=== PATIENT | male | born 1955 | race African-American/Black ===

== ENCOUNTER 2016-03-08 12:16 | Emergency (ER) | payer OTHER ==
[~2016-03-08] VITALS: Ht 182.9 cm; Wt 76.8 kg
[~2016-03-08 12:16] MED LIST: A&D OINTMENT60 GM PO; BACTRIM,SEPT1 TABLET PO; BENADRYL25 MG PO; BENZONATATE200 MG PO; BISACODYL SUPP10 MG PR; CIPRO500 MG GT; CLOTRIMAZOLE15 GM TP; DEMECLOCYCLINE300 MG PO; DEPAKOTE ER (E500 MG PO; DEPAKOTE ER500 MG PO; DEPAKOTE500 MG PO; DESENEX TP; DILANTIN BRAND100 MG PO; DILANTIN INFATA50 MG PO; DILANTIN-1125 MG/5 M GT; DILANTIN100 MG PO; DIVALPROEX SOD500 MG PO; DULCOLAX10 MG PR; Depakote ER (Extende PO; FEROSUL220 MG/51 GT; FIBER LAX625 MG PO; FIBER LAXATIVE500 MG PO; FIBER LAXATIVE660 GM PO; FIBER-TABS625 MG PO; FLEET ENEMA EX230 ML PR; FLEET ENEMA-AD118 ML PR; FOLIC ACID0.4 MG PO; FOLIC ACID1 MG PO; IBUPROFEN600 MG PO; JEVITY 1.2 CAL237 ML GT; JEVITY1000 M1 G; KEPPRA100 MG/1 M GT; KEPPRA500 MG/5 M GT; LEVOTHYROXINE125 MCG PO; LOMOTIL TABLET1 EACH PO; LOTRIMIN C1 APPLICAT TP; MACRODANTIN100 MG PO; MACRODANTIN50 M1 PO; MIRALAX17 GM GT; NITROFURANTOIN100 MG PO; PAIN & FEVER500 MG PO; PHENERGAN12.5 M1 PO; PHENERGAN25 MG PR; POTASSIUM CHLO20 ME2 PO; POTASSIUM CITR10 MEQ GT; POTASSIUM CITR10 MEQ PO; PROTONIX40 MG GT; PROTONIX40 MG PO; Protonix PO; Q-TUSSIN DM SY240 ML PO; SAMSCA30 MG PO; SENNA PLUS TAB1 EACH PO; SENNA S TABLET1 EACH PO; SENOKOT,SENN1 TABLET PO; SOOTHING CARE28 GM TP; SYNTHROID125 MCG PO; Senokot,Sennagen PO; TUCKS1 EACH RC; TYLENOL EXTRA500 MG PO; UROCIT-K10 MEQ PO; VITAMIN A & D60 GM TP; VITAMIN A TP; [UNRECOGNIZED DRUG - OTHER] DT; [UNRECOGNIZED DRUG - OTHER] TP; [UNRECOGNIZED DRUG - OTHER] TP
[2016-03-08 17:50] VITALS: BP 127/70
== END 2016-03-08 17:51 | disposition home or self-care (01) ==
LOC: EME 12:16
DX: Z43.1 Encounter for attention to gastrostomy (principal); G80.9 Cerebral palsy, unspecified; E03.9 Hypothyroidism, unspecified; R56.9 Unspecified convulsions; Z87.442 Personal history of urinary calculi
CPT/HCPCS: 74000; 99281; 99284

== ENCOUNTER 2016-04-11 13:20 | Emergency (ER) | payer OTHER ==
[~2016-04-11] VITALS: Ht 182.9 cm; Wt 79.3 kg
[2016-04-11 15:54] VITALS: BP 161/92
[2016-04-11] MEDS ORDERED: [UNRECOGNIZED DRUG - OTHER] DT (21:40)
[2016-04-11] MEDS ORDERED: JEVITY 1.2 CAL237 ML GT ×2 (21:42)
[2016-04-11] MEDS ORDERED: FLEET ENEMA-AD118 ML PR (21:48)
== END 2016-04-11 15:55 | disposition home or self-care (01) ==
LOC: EME 13:20
DX: K94.23 Gastrostomy malfunction (principal); J45.909 Unspecified asthma, uncomplicated; K21.9 Gastro-esophageal reflux disease without esophagitis; G80.9 Cerebral palsy, unspecified; E03.9 Hypothyroidism, unspecified; Z87.442 Personal history of urinary calculi
CPT/HCPCS: 99281; 99283

== ENCOUNTER 2016-04-11 17:58 | Inpatient (IN) | payer OTHER ==
[~2016-04-11] VITALS: Ht 185.4 cm; Wt 88.6 kg
[2016-04-11 19:26] LABS: EOSINOPHIL (%) 0.2 % (0-5); HEMATOCRIT 44.1 % (38.0-50.0); IMMATURE GRANULOCYTE (%) 0.2 % (0.0-0.7); IMMATURE GRANULOCYTE COUNT 0.2 K/uL; LYMPHOCYTE COUNT 1.2 K/uL (1.0-2.8); MCH 33.7 PG (29.0-34.0); MCHC 32.7 G/DL (30.0-36.0); MCV 103.3 FL (86-99); MONOCYTE (%) 10.1 % (3-12); MONOCYTE COUNT 1.4 K/uL (0-0.8); NEUTROPHIL (%) 80.4 % (45-76); NEUTROPHIL COUNT 10.7 K/uL (1.8-6.4); PLATELET COUNT 122 K/uL (156-360); RBC DIS.WIDTH-CV 12.4 % (11.8-14.6); RBC DIS.WIDTH-SD 46.6 % (39-53); RED BLOOD COUNT 4.27 M/uL (4.00-5.50); WHITE BLOOD COUNT 13.3 K/uL (4.1-10.2)
[2016-04-11 19:37] LABS: CHLORIDE 97 mEq/L (99-109); POTASSIUM 4.9 mEq/L (3.7-5.4); SODIUM 136 mEq/L (136-147)
[2016-04-11 19:39] LABS: GLUCOSE 116 mg/dL (70-99)
[2016-04-11 19:41] LABS: ANION GAP 13 MEQ/L (2-14); TOTAL BILIRUBIN 0.4 mg/dL (0.0-1.0)
[2016-04-11 19:43] LABS: ALKALINE PHOSPHATASE 165 IU/L (3-129); GFR ESTIMATE (CALCULATED) > 59 mL/min/
[2016-04-11 19:44] LABS: UREA NITROGEN (BUN) 10 mg/dL (9-23)
[2016-04-11 20:17] LABS: ADD MIUA? YES; BILIRUBIN NEGATIVE; BLOOD MODERATE; COLOR YELLOW ((YELLOW)); GLUCOSE (STRIP) NEGATIVE; KETONES NEGATIVE; LEUKOCYTES MODERATE; NITRITE NEGATIVE; PROTEIN (STRIP) NEGATIVE; SPECIFIC GRAVITY 1.005 (1.000-1.030); UROBILINOGEN 0.2 MG/DL (0.2-1.0)
[2016-04-11 20:25] LABS: INFLUENZA A VIRAL ANTIGEN NEGATIVE; INFLUENZA B VIRAL ANTIGEN NEGATIVE
[2016-04-11 21:04] LABS: BACTERIA 3+ /HPF; CASTS NONE SEEN /LPF; CRYSTALS NONE SEEN; EPITHELIAL CELLS NONE SEEN /HPF; MUCUS NONE SEEN /LPF; UCUL ADDED? YES; WHITE BLOOD CELLS TNTC /HPF (0-5)
[2016-04-11] MEDS ORDERED: [UNRECOGNIZED DRUG - OTHER] DT (21:40)
[2016-04-11] MEDS ORDERED: JEVITY 1.2 CAL237 ML GT ×2 (21:42)
[2016-04-11] MEDS ORDERED: FLEET ENEMA-AD118 ML PR (21:48)
[2016-04-12 06:11] LABS: POTASSIUM 5.3 mEq/L (3.7-5.4); SODIUM 140 mEq/L (136-147)
[2016-04-12 06:12] LABS: GLUCOSE 118 mg/dL (70-99)
[2016-04-12 06:14] LABS: ANION GAP 3 MEQ/L (2-14)
[2016-04-12 06:15] LABS: CHLORIDE 109 mEq/L (99-109)
[2016-04-12 06:16] LABS: GFR ESTIMATE (CALCULATED) > 59 mL/min/
[2016-04-12 06:17] LABS: RED BLOOD COUNT 3.51 M/uL (4.00-5.50); UREA NITROGEN (BUN) 8 mg/dL (9-23); WHITE BLOOD COUNT 11.5 K/uL (4.1-10.2)
[2016-04-12 06:18] LABS: EOSINOPHIL (%) 0.05 % (0-5); HEMATOCRIT 36.5 % (38.0-50.0); LYMPHOCYTE COUNT 15.4 K/uL (1.0-2.8); MCH 33.3 PG (29.0-34.0); MCHC 32.1 G/DL (30.0-36.0); MEAN PLAT.VOLUME 11.3 uM^3 (9.0-12.4); NEUTROPHIL (%) 8.62 % (45-76); PLATELET COUNT 107 K/uL (156-360); RBC DIS.WIDTH-CV 12.6 % (11.8-14.6)
[2016-04-12 06:19] LABS: BASOPHIL COUNT 0.1 K/uL (0-0.1); EOSINOPHIL COUNT 8.7 K/uL (0-0.3); IMMATURE GRANULOCYTE COUNT 0.2 K/uL; MONOCYTE COUNT 8.7 K/uL (0-0.8); NEUTROPHIL COUNT 75.2 K/uL (1.8-6.4)
[2016-04-12 10:23] LABS: RBC DIS.WIDTH-SD 46.9 % (39-53)
[2016-04-12 15:28] VITALS: BP 118/78
[2016-04-12 19:56] VITALS: BP 111/65
[2016-04-12 23:52] VITALS: BP 106/53; BP 119/77
[2016-04-13 03:58] VITALS: BP 129/78
[2016-04-13 06:26] LABS: ANION GAP 3 MEQ/L (2-14); CHLORIDE 106 MEQ/L (99-109); GFR ESTIMATE (CALCULATED) > 59 mL/min/; SAMPLE HEMOLYSIS CHECK 0; SAMPLE ICTERIC CHECK 0; SAMPLE LIPEMIA CHECK 0; SODIUM 139 MEQ/L (136-147); UREA NITROGEN (BUN) 6 mg/dL (9-23)
[2016-04-13 06:47] LABS: GLUCOSE 80 mg/dL (70-99); POTASSIUM 3.9 MEQ/L (3.7-5.4)
[2016-04-13 07:01] LABS: EOSINOPHIL (%) 1.8 % (0-5); EOSINOPHIL COUNT 0.1 K/uL (0-0.3); HEMATOCRIT 33.8 % (38.0-50.0); IMMATURE GRANULOCYTE (%) 0.1 % (0.0-0.7); LYMPHOCYTE COUNT 1.8 K/uL (1.0-2.8); MCH 34.1 PG (29.0-34.0); MCV 106.6 FL (86-99); MEAN PLAT.VOLUME 11.4 uM^3 (9.0-12.4); MONOCYTE (%) 13.3 % (3-12); NEUTROPHIL (%) 60.3 % (45-76); NEUTROPHIL COUNT 4.5 K/uL (1.8-6.4); PLATELET COUNT 109 K/uL (156-360); RBC DIS.WIDTH-SD 50.4 % (39-53); RED BLOOD COUNT 3.17 M/uL (4.00-5.50)
[2016-04-13 07:20] LABS: WHITE BLOOD COUNT 7.4 K/uL (4.1-10.2)
[2016-04-13 07:44] VITALS: BP 120/67
[2016-04-13 11:28] VITALS: BP 132/85
[2016-04-13 15:33] VITALS: BP 128/70
[2016-04-13 19:29] VITALS: BP 155/81
[2016-04-13 23:10] VITALS: BP 135/78
[2016-04-14] VITALS (7 sets, daily range): BP systolic 133–178; BP diastolic 69–90
[2016-04-14 06:46] LABS: EOSINOPHIL COUNT 0.2 K/uL (0-0.3); HEMATOCRIT 34.5 % (38.0-50.0); IMMATURE GRANULOCYTE (%) 0.2 % (0.0-0.7); LYMPHOCYTE COUNT 2.6 K/uL (1.0-2.8); MCH 33.9 PG (29.0-34.0); MCHC 32.5 G/DL (30.0-36.0); MCV 104.5 FL (86-99); MEAN PLAT.VOLUME 11.7 uM^3 (9.0-12.4); MONOCYTE (%) 9.8 % (3-12); MONOCYTE COUNT 0.6 K/uL (0-0.8); NEUTROPHIL (%) 44.1 % (45-76); NEUTROPHIL COUNT 2.6 K/uL (1.8-6.4); PLATELET COUNT 117 K/uL (156-360); RBC DIS.WIDTH-CV 12.9 % (11.8-14.6); RBC DIS.WIDTH-SD 48.9 % (39-53)
[2016-04-14 07:24] LABS: ANION GAP 5 MEQ/L (2-14); CHLORIDE 107 MEQ/L (99-109); GFR ESTIMATE (CALCULATED) > 59 mL/min/; GLUCOSE 102 mg/dL (70-99); POTASSIUM ND MEQ/L (3.7-5.4); SAMPLE HEMOLYSIS CHECK 2; SAMPLE ICTERIC CHECK 0; SAMPLE LIPEMIA CHECK 0; SODIUM 141 MEQ/L (136-147); UREA NITROGEN (BUN) 6 mg/dL (9-23)
[2016-04-14 09:25] LABS: POTASSIUM 3.9 MEQ/L (3.7-5.4)
[2016-04-15 03:05] VITALS: BP 143/77
[2016-04-15 08:00] VITALS: BP 135/74
[2016-04-15 11:56] VITALS: BP 151/82
[2016-04-15] MEDS ORDERED: CEFTIN250 MG/5 M PO (13:50)
[2016-04-15 16:18] VITALS: BP 134/72
== END 2016-04-15 17:57 | disposition home or self-care (01) | DRG 872 ==
LOC: EME 17:58 → 4SOUTH 22:19 → EDOF 22:19 → 4SOUTH 04-12 15:20
PROVIDERS: Emergency Medicine; Family Medicine Sports Medicine
DX: A41.9 Sepsis, unspecified organism (principal); N39.0 Urinary tract infection, site not specified; E22.2 Syndrome of inappropriate secretion of antidiuretic hormone; E87.2 Acidosis; B96.20 Unspecified Escherichia coli [E. coli] as the cause of diseases classified elsewhere; G80.9 Cerebral palsy, unspecified; G40.909 Epilepsy, unspecified, not intractable, without status epilepticus; E03.9 Hypothyroidism, unspecified; K21.9 Gastro-esophageal reflux disease without esophagitis; R32 Unspecified urinary incontinence; Z93.1 Gastrostomy status; Z91.041 Radiographic dye allergy status; Z88.5 Allergy status to narcotic agent
CPT/HCPCS: 71010; 76770; 80048; 80053; 80185; 81003; 83605; 84999; 85025; 87040; 87077; 87086; 87186; 87502; 93005; 94799; 99281; 99285; J0696; J1650; J2543; J3370; J7030; J7050

== ENCOUNTER 2016-07-11 16:04 | Inpatient (IN) | payer OTHER ==
[~2016-07-11] VITALS: Ht 185.4 cm; Wt 85.8 kg
[~2016-07-11 16:04] MED LIST changes: +CEFTIN250 MG/5 M PO
[2016-07-11 16:57] LABS: EOSINOPHIL (%) 1.6 % (0-5); EOSINOPHIL COUNT 0.1 K/uL (0-0.3); HEMATOCRIT 41.2 % (38.0-50.0); IMMATURE GRANULOCYTE (%) 0.5 % (0.0-0.7); INSTRUMENT ABS NEUTROPHIL CT 4.5 K/uL; LYMPHOCYTE COUNT 1.9 K/uL (1.0-2.8); MCH 33.1 PG (29.0-34.0); MCHC 32.3 G/DL (30.0-36.0); MCV 102.5 FL (86-99); MEAN PLAT.VOLUME 11.8 uM^3 (9.0-12.4); MONOCYTE (%) 15.2 % (3-12); MONOCYTE COUNT 1.2 K/uL (0-0.8); NEUTROPHIL (%) 58.1 % (45-76); NEUTROPHIL COUNT 4.5 K/uL (1.8-6.4); NRBC (%) 0.3 /100 WBC (0-0); PLATELET COUNT 130 K/uL (156-360); RBC DIS.WIDTH-CV 12.5 % (11.8-14.6); RBC DIS.WIDTH-SD 47.6 % (39-53); RED BLOOD COUNT 4.02 M/uL (4.00-5.50); WHITE BLOOD COUNT 7.7 K/uL (4.1-10.2)
[2016-07-11 17:06] LABS: CHLORIDE 101 mEq/L (99-109); POTASSIUM 4.9 mEq/L (3.7-5.4); SODIUM 137 mEq/L (136-147)
[2016-07-11 17:08] LABS: GLUCOSE 71 mg/dL (70-99)
[2016-07-11 17:09] LABS: ANION GAP 8 MEQ/L (2-14)
[2016-07-11 17:10] LABS: TOTAL BILIRUBIN 0.3 mg/dL (0.0-1.0)
[2016-07-11 17:11] LABS: ALKALINE PHOSPHATASE 173 IU/L (3-129)
[2016-07-11 17:12] LABS: GFR ESTIMATE (CALCULATED) > 59 mL/min/
[2016-07-11 17:13] LABS: UREA NITROGEN (BUN) 14 mg/dL (9-23)
[2016-07-11 17:15] LABS: CREATINE KINASE 41 IU/L (1-294); TOTAL CK 41 IU/L (1-294)
[2016-07-11 17:17] LABS: TROP-I INTERPRETATION NEGATIVE; TROPONIN-I < 0.01 ng/mL (0.0-0.30)
[2016-07-11 17:20] LABS: CK-MB 1.3 ng/mL (0.0-4.9)
[2016-07-11 17:45] LABS: ADD MIUA? YES; BILIRUBIN NEGATIVE; BLOOD MODERATE; COLOR YELLOW ((YELLOW)); GLUCOSE (STRIP) NEGATIVE; KETONES NEGATIVE; LEUKOCYTES LARGE; NITRITE POSITIVE; PROTEIN (STRIP) NEGATIVE; SPECIFIC GRAVITY 1.012 (1.000-1.030); UROBILINOGEN 0.2 MG/DL (0.2-1.0)
[2016-07-11 18:01] LABS: BACTERIA RARE /HPF; EPITHELIAL CELLS NONE SEEN /HPF; MUCUS TRACE /LPF; RED BLOOD CELLS NONE SEEN /HPF (0-5); UCUL ADDED? NO; WHITE BLOOD CELLS 40-50 /HPF (0-5); WHITE BLOOD CELLS CLUMP MANY /HPF (0-5)
[2016-07-11] MEDS ORDERED: TUCKS TP (20:50)
[2016-07-11] MEDS ORDERED: FEROSUL220 MG/51 PO (20:52)
[2016-07-11 23:50] VITALS: BP 113/65
[2016-07-12 04:06] VITALS: BP 112/70
[2016-07-12 07:03] LABS: EOSINOPHIL (%) 0.7 % (0-5); EOSINOPHIL COUNT 0.1 K/uL (0-0.3); HEMATOCRIT 38.1 % (38.0-50.0); IMMATURE GRANULOCYTE (%) 0.4 % (0.0-0.7); INSTRUMENT ABS NEUTROPHIL CT 4.9 K/uL; LYMPHOCYTE COUNT 1.9 K/uL (1.0-2.8); MCH 33.8 PG (29.0-34.0); MCHC 32.5 G/DL (30.0-36.0); MCV 103.8 FL (86-99); MEAN PLAT.VOLUME 12.3 uM^3 (9.0-12.4); MONOCYTE (%) 16.1 % (3-12); MONOCYTE COUNT 1.3 K/uL (0-0.8); NEUTROPHIL (%) 59.7 % (45-76); NEUTROPHIL COUNT 4.9 K/uL (1.8-6.4); PLATELET COUNT 98 K/uL (156-360); RBC DIS.WIDTH-CV 12.6 % (11.8-14.6); RED BLOOD COUNT 3.67 M/uL (4.00-5.50); WHITE BLOOD COUNT 8.2 K/uL (4.1-10.2)
[2016-07-12 07:49] LABS: ALKALINE PHOSPHATASE 148 IU/L (3-129); ANION GAP 7 MEQ/L (2-14); CHLORIDE 98 MEQ/L (99-109); DIRECT BILIRUBIN 0.1 mg/dL (0.0-0.3); GFR ESTIMATE (CALCULATED) > 59 mL/min/; POTASSIUM 4.4 MEQ/L (3.7-5.4); SAMPLE HEMOLYSIS CHECK 0; SAMPLE ICTERIC CHECK 0; SAMPLE LIPEMIA CHECK 0; SODIUM 136 MEQ/L (136-147); UREA NITROGEN (BUN) 14 mg/dL (9-23)
[2016-07-12 07:52] LABS: GLUCOSE 92 mg/dL (70-99); TOTAL BILIRUBIN 0.4 MG/DL (0.0-1.0)
[2016-07-12 12:00] VITALS: BP 117/65
[2016-07-12 15:37] LABS: GLUCOSE 141 mg/dL (70-99)
[2016-07-12 16:18] LABS: GLUCOSE 141 mg/dL (70-99)
[2016-07-12 17:05] VITALS: BP 120/67
[2016-07-12 19:51] VITALS: BP 109/75
[2016-07-12 22:29] LABS: GLUCOSE 90 mg/dL (70-99)
[2016-07-12 22:37] VITALS: BP 146/71
[2016-07-13 03:15] VITALS: BP 124/68
[2016-07-13 04:25] LABS: POINT-OF-CARE METER ID UU13113725
[2016-07-13 08:01] LABS: EOSINOPHIL (%) 1.5 % (0-5); EOSINOPHIL COUNT 0.1 K/uL (0-0.3); HEMATOCRIT 38.6 % (38.0-50.0); IMMATURE GRANULOCYTE (%) 0.4 % (0.0-0.7); INSTRUMENT ABS NEUTROPHIL CT 4.7 K/uL; LYMPHOCYTE COUNT 1.1 K/uL (1.0-2.8); MCH 33.7 PG (29.0-34.0); MCHC 32.9 G/DL (30.0-36.0); MCV 102.4 FL (86-99); MEAN PLAT.VOLUME 12.7 uM^3 (9.0-12.4); MONOCYTE (%) 17.2 % (3-12); MONOCYTE COUNT 1.3 K/uL (0-0.8); NEUTROPHIL (%) 65.2 % (45-76); NEUTROPHIL COUNT 4.7 K/uL (1.8-6.4); PLATELET COUNT 99 K/uL (156-360); RBC DIS.WIDTH-CV 12.6 % (11.8-14.6); RBC DIS.WIDTH-SD 47.2 % (39-53); RED BLOOD COUNT 3.77 M/uL (4.00-5.50); WHITE BLOOD COUNT 7.3 K/uL (4.1-10.2)
[2016-07-13 08:06] LABS: INTERNAL CONTROL VALID? YES
[2016-07-13 08:38] LABS: ANION GAP 7 MEQ/L (2-14); CHLORIDE 96 MEQ/L (99-109); GFR ESTIMATE (CALCULATED) > 59 mL/min/; GLUCOSE 109 mg/dL (70-99); POTASSIUM 4.3 MEQ/L (3.7-5.4); SAMPLE HEMOLYSIS CHECK 0; SAMPLE ICTERIC CHECK 0; SAMPLE LIPEMIA CHECK 0; SODIUM 133 MEQ/L (136-147); UREA NITROGEN (BUN) 11 mg/dL (9-23)
[2016-07-13 08:51] VITALS: BP 134/79
[2016-07-13 11:03] LABS: POINT-OF-CARE METER ID UU13113725
[2016-07-13 18:05] VITALS: BP 118/68
[2016-07-13 20:05] VITALS: BP 136/74
[2016-07-13 21:08] LABS: POINT-OF-CARE METER ID UU13113725
[2016-07-13 23:52] VITALS: BP 120/71
[2016-07-14 00:32] LABS: POINT-OF-CARE METER ID UU13113725
[2016-07-14 06:47] VITALS: BP 116/59
[2016-07-14 07:46] LABS: EOSINOPHIL (%) 5.1 % (0-5); EOSINOPHIL COUNT 0.3 K/uL (0-0.3); HEMATOCRIT 39.4 % (38.0-50.0); IMMATURE GRANULOCYTE (%) 0.3 % (0.0-0.7); INSTRUMENT ABS NEUTROPHIL CT 2.8 K/uL; LYMPHOCYTE COUNT 1.7 K/uL (1.0-2.8); MCH 33.1 PG (29.0-34.0); MCHC 32.2 G/DL (30.0-36.0); MCV 102.6 FL (86-99); MEAN PLAT.VOLUME 12.3 uM^3 (9.0-12.4); MONOCYTE (%) 22.4 % (3-12); MONOCYTE COUNT 1.4 K/uL (0-0.8); NEUTROPHIL (%) 44.8 % (45-76); NEUTROPHIL COUNT 2.8 K/uL (1.8-6.4); PLATELET COUNT 119 K/uL (156-360); RBC DIS.WIDTH-CV 12.6 % (11.8-14.6); RBC DIS.WIDTH-SD 47.6 % (39-53); RED BLOOD COUNT 3.84 M/uL (4.00-5.50); WHITE BLOOD COUNT 6.2 K/uL (4.1-10.2)
[2016-07-14 08:50] LABS: ANION GAP 8 MEQ/L (2-14); CHLORIDE 99 MEQ/L (99-109); GFR ESTIMATE (CALCULATED) > 59 mL/min/; POTASSIUM 4.7 MEQ/L (3.7-5.4); SAMPLE HEMOLYSIS CHECK 0; SAMPLE ICTERIC CHECK 0; SAMPLE LIPEMIA CHECK 0; SODIUM 136 MEQ/L (136-147); UREA NITROGEN (BUN) 14 mg/dL (9-23)
[2016-07-14 08:54] LABS: GLUCOSE 77 mg/dL (70-99)
[2016-07-14 10:15] LABS: POINT-OF-CARE METER ID UU13113725
[2016-07-14 11:16] VITALS: BP 131/75
[2016-07-14 11:42] VITALS: BP 131/75
[2016-07-14] MEDS ORDERED: DILANTIN-1125 MG/5 M GT (12:49)
[2016-07-14] MEDS ORDERED: VANTIN200 MG PO (12:49)
== END 2016-07-14 15:30 | disposition home or self-care (01) | DRG 193 ==
LOC: EME 16:04 → EDOF 22:20 → 5EAST 22:20 → EDOF 22:20 → 5EAST 23:14
PROVIDERS: Emergency Medicine; Hospitalist
DX: J18.9 Pneumonia, unspecified organism (principal); E72.20 Disorder of urea cycle metabolism, unspecified; N39.0 Urinary tract infection, site not specified; E22.2 Syndrome of inappropriate secretion of antidiuretic hormone; G82.50 Quadriplegia, unspecified; D69.6 Thrombocytopenia, unspecified; G80.9 Cerebral palsy, unspecified; G40.909 Epilepsy, unspecified, not intractable, without status epilepticus; E03.9 Hypothyroidism, unspecified; K59.00 Constipation, unspecified; I10 Essential (primary) hypertension; B96.20 Unspecified Escherichia coli [E. coli] as the cause of diseases classified elsewhere; M54.5 Low back pain; E66.9 Obesity, unspecified; K02.9 Dental caries, unspecified; M21.372 Foot drop, left foot; M21.371 Foot drop, right foot; Z68.24 Body mass index [BMI] 24.0-24.9, adult; Z93.1 Gastrostomy status; Z99.3 Dependence on wheelchair
CPT/HCPCS: 36415; 71010; 74176; 80048; 80048 91; 80053; 80076; 80185; 81003; 82140; 82550; 82553; 82947 91; 82948; 83935; 84443; 84484; 85025; 85027; 87040; 87070; 87077; 87086; 87186; 87205; 87449; 93005; 94640; 94640 76; 99202; 99281; 99285; G0378; J0456; J0696; J1644; J1885; J1956; J2270; J7050

== ENCOUNTER 2016-08-30 13:38 | Inpatient (IN) | payer OTHER ==
[~2016-08-30] VITALS: Ht 177.8 cm; Wt 80.0 kg
[~2016-08-30 13:38] MED LIST changes: +TUCKS TP; +VANTIN200 MG PO
[2016-08-30 14:34] LABS: EOSINOPHIL (%) 2.8 % (0-5); EOSINOPHIL COUNT 0.1 K/uL (0-0.3); HEMATOCRIT 39.2 % (38.0-50.0); IMMATURE GRANULOCYTE (%) 0.3 % (0.0-0.7); INSTRUMENT ABS NEUTROPHIL CT 1.1 K/uL; LYMPHOCYTE COUNT 1.6 K/uL (1.0-2.8); MCH 33.2 PG (29.0-34.0); MCHC 31.1 G/DL (30.0-36.0); MCV 106.5 FL (86-99); MEAN PLAT.VOLUME 12.5 uM^3 (9.0-12.4); MONOCYTE (%) 10.9 % (3-12); MONOCYTE COUNT 0.4 K/uL (0-0.8); NEUTROPHIL (%) 35.1 % (45-76); NEUTROPHIL COUNT 1.1 K/uL (1.8-6.4); NRBC (%) 1.6 /100 WBC (0-0); RBC DIS.WIDTH-CV 13.2 % (11.8-14.6); RBC DIS.WIDTH-SD 52.5 % (39-53); RED BLOOD COUNT 3.68 M/uL (4.00-5.50); WHITE BLOOD COUNT 3.2 K/uL (4.1-10.2)
[2016-08-30 14:37] LABS: PLATELET COUNT 56 K/uL (156-360)
[2016-08-30 14:42] LABS: CHLORIDE 103 mEq/L (99-109); SODIUM 137 mEq/L (136-147)
[2016-08-30 14:45] LABS: GLUCOSE 110 mg/dL (70-99)
[2016-08-30 14:46] LABS: ANION GAP 4 MEQ/L (2-14)
[2016-08-30 14:47] LABS: TOTAL BILIRUBIN 0.2 mg/dL (0.0-1.0)
[2016-08-30 14:48] LABS: ALKALINE PHOSPHATASE 139 IU/L (3-129); GFR ESTIMATE (CALCULATED) > 59 mL/min/
[2016-08-30 14:48] LABS: ADD MIUA? YES; BILIRUBIN NEGATIVE; BLOOD SMALL; COLOR YELLOW ((YELLOW)); GLUCOSE (STRIP) NEGATIVE; KETONES NEGATIVE; LEUKOCYTES MODERATE; NITRITE NEGATIVE; PROTEIN (STRIP) NEGATIVE; SPECIFIC GRAVITY 1.013 (1.000-1.030); UROBILINOGEN 0.2 MG/DL (0.2-1.0)
[2016-08-30 14:49] LABS: UREA NITROGEN (BUN) 16 mg/dL (9-23)
[2016-08-30 14:56] LABS: BACTERIA NONE SEEN /HPF; EPITHELIAL CELLS RARE /HPF; MUCUS TRACE /LPF; RED BLOOD CELLS NONE SEEN /HPF (0-5); UCUL ADDED? NO; WHITE BLOOD CELLS 15-20 /HPF (0-5)
[2016-08-30 14:57] LABS: TROP-I INTERPRETATION NEGATIVE; TROPONIN-I < 0.01 ng/mL (0.0-0.30)
[2016-08-30 20:36] VITALS: BP 108/59
[2016-08-31 00:49] VITALS: BP 118/58
[2016-08-31 06:45] VITALS: BP 127/65
[2016-08-31 11:00] VITALS: BP 131/68
[2016-08-31 13:58] LABS: ANION GAP 4 MEQ/L (2-14); CHLORIDE 108 MEQ/L (99-109); GFR ESTIMATE (CALCULATED) > 59 mL/min/; GLUCOSE 144 mg/dL (70-99); POTASSIUM 4.6 MEQ/L (3.7-5.4); SAMPLE HEMOLYSIS CHECK 0; SAMPLE ICTERIC CHECK 0; SAMPLE LIPEMIA CHECK 0; SODIUM 138 MEQ/L (136-147); UREA NITROGEN (BUN) 10 mg/dL (9-23)
[2016-08-31 15:00] VITALS: BP 129/66
[2016-08-31 19:20] VITALS: BP 108/52
[2016-08-31 19:37] LABS: EOSINOPHIL (%) 2.2 % (0-5); EOSINOPHIL COUNT 0.1 K/uL (0-0.3); HEMATOCRIT 34.6 % (38.0-50.0); IMMATURE GRANULOCYTE (%) 0.2 % (0.0-0.7); INSTRUMENT ABS NEUTROPHIL CT 1.7 K/uL; LYMPHOCYTE COUNT 1.8 K/uL (1.0-2.8); MCH 33.3 PG (29.0-34.0); MCHC 31.2 G/DL (30.0-36.0); MCV 106.8 FL (86-99); MEAN PLAT.VOLUME 12.5 uM^3 (9.0-12.4); MONOCYTE (%) 13.8 % (3-12); MONOCYTE COUNT 0.6 K/uL (0-0.8); NEUTROPHIL (%) 40.5 % (45-76); NEUTROPHIL COUNT 1.7 K/uL (1.8-6.4); NRBC (%) 1.5 /100 WBC (0-0); PLATELET COUNT 52 K/uL (156-360); RBC DIS.WIDTH-CV 13.4 % (11.8-14.6); RBC DIS.WIDTH-SD 53.3 % (39-53); RED BLOOD COUNT 3.24 M/uL (4.00-5.50); WHITE BLOOD COUNT 4.1 K/uL (4.1-10.2)
[2016-08-31 23:12] VITALS: BP 145/88
[2016-09-01 03:00] VITALS: BP 135/75
[2016-09-01 06:24] LABS: EOSINOPHIL (%) 2.5 % (0-5); EOSINOPHIL COUNT 0.1 K/uL (0-0.3); IMMATURE GRANULOCYTE (%) 0.3 % (0.0-0.7); INSTRUMENT ABS NEUTROPHIL CT 1.1 K/uL; LYMPHOCYTE COUNT 2.2 K/uL (1.0-2.8); MCH 34.4 PG (29.0-34.0); MCHC 32.6 G/DL (30.0-36.0); MCV 105.3 FL (86-99); MEAN PLAT.VOLUME 12.9 uM^3 (9.0-12.4); MONOCYTE (%) 12.1 % (3-12); MONOCYTE COUNT 0.5 K/uL (0-0.8); NEUTROPHIL (%) 28.5 % (45-76); NEUTROPHIL COUNT 1.1 K/uL (1.8-6.4); PLATELET COUNT 53 K/uL (156-360); RBC DIS.WIDTH-CV 13.3 % (11.8-14.6); RBC DIS.WIDTH-SD 51.2 % (39-53); RED BLOOD COUNT 3.23 M/uL (4.00-5.50)
[2016-09-01 06:46] LABS: ALKALINE PHOSPHATASE 119 IU/L (3-129); ANION GAP 2 MEQ/L (2-14); CHLORIDE 103 MEQ/L (99-109); GFR ESTIMATE (CALCULATED) > 59 mL/min/; POTASSIUM 4.4 MEQ/L (3.7-5.4); SAMPLE HEMOLYSIS CHECK 0; SAMPLE ICTERIC CHECK 0; SAMPLE LIPEMIA CHECK 0; SODIUM 134 MEQ/L (136-147); TOTAL BILIRUBIN 0.3 MG/DL (0.0-1.0); UREA NITROGEN (BUN) 9 mg/dL (9-23)
[2016-09-01 06:49] LABS: GLUCOSE 56 mg/dL (70-99)
[2016-09-01 07:04] LABS: LIPASE 22 U/L (1.0-51.0)
[2016-09-01 07:52] VITALS: BP 144/77
[2016-09-01 12:00] VITALS: BP 152/79
[2016-09-01 16:00] VITALS: BP 164/91
[2016-09-01 18:14] LABS: HEMATOCRIT 37.1 % (38.0-50.0); MCH 34.5 PG (29.0-34.0); MCHC 32.6 G/DL (30.0-36.0); MCV 105.7 FL (86-99); MEAN PLAT.VOLUME 12.9 uM^3 (9.0-12.4); NRBC (%) 1.2 /100 WBC (0-0); PLATELET COUNT 55 K/uL (156-360); RBC DIS.WIDTH-CV 13.5 % (11.8-14.6); RBC DIS.WIDTH-SD 52.3 % (39-53); RED BLOOD COUNT 3.51 M/uL (4.00-5.50); WHITE BLOOD COUNT 3.4 K/uL (4.1-10.2)
[2016-09-01 18:38] LABS: ANION GAP 5 MEQ/L (2-14); CHLORIDE 104 MEQ/L (99-109); GFR ESTIMATE (CALCULATED) > 59 mL/min/; POTASSIUM 4.6 MEQ/L (3.7-5.4); SAMPLE HEMOLYSIS CHECK 0; SAMPLE ICTERIC CHECK 0; SAMPLE LIPEMIA CHECK 0; SODIUM 136 MEQ/L (136-147); UREA NITROGEN (BUN) 9 mg/dL (9-23)
[2016-09-01 18:39] LABS: GLUCOSE 145 mg/dL (70-99)
[2016-09-01 18:40] VITALS: BP 146/73
[2016-09-01 18:40] LABS: TROP-I INTERPRETATION NEGATIVE; TROPONIN-I 0.02 ng/mL (0.0-0.30)
[2016-09-01 20:41] LABS: ALKALINE PHOSPHATASE 147 IU/L (3-129)
[2016-09-01 20:52] LABS: TOTAL BILIRUBIN 0.2 MG/DL (0.0-1.0)
[2016-09-01 23:48] LABS: METH RESISTANT S AUREUS PCR POSITIVE (NEGATIVE)
[2016-09-01 23:56] LABS: PROBE CHECK PASS
[2016-09-01 23:59] VITALS: BP 137/70
[2016-09-02 03:55] VITALS: BP 146/61
[2016-09-02 07:09] LABS: ANION GAP 4 MEQ/L (2-14); CHLORIDE 104 MEQ/L (99-109); GFR ESTIMATE (CALCULATED) > 59 mL/min/; POTASSIUM 5.2 MEQ/L (3.7-5.4); SAMPLE HEMOLYSIS CHECK 0; SAMPLE ICTERIC CHECK 0; SAMPLE LIPEMIA CHECK 0; SODIUM 137 MEQ/L (136-147); UREA NITROGEN (BUN) 9 mg/dL (9-23)
[2016-09-02 07:10] LABS: GLUCOSE 104 mg/dL (70-99)
[2016-09-02 10:35] VITALS: BP 140/79
[2016-09-02 12:32] VITALS: BP 160/82
[2016-09-02 16:00] VITALS: BP 120/72
[2016-09-02 20:02] VITALS: BP 126/74
[2016-09-02 23:56] VITALS: BP 120/75
[2016-09-03 04:30] VITALS: BP 135/76
[2016-09-03 07:00] LABS: EOSINOPHIL (%) 0.4 % (0-5); HEMATOCRIT 34.2 % (38.0-50.0); IMMATURE GRANULOCYTE (%) 0.4 % (0.0-0.7); INSTRUMENT ABS NEUTROPHIL CT 2.5 K/uL; LYMPHOCYTE COUNT 1.6 K/uL (1.0-2.8); MCH 34.5 PG (29.0-34.0); MCV 104.3 FL (86-99); MEAN PLAT.VOLUME 13.7 uM^3 (9.0-12.4); MONOCYTE (%) 8.4 % (3-12); MONOCYTE COUNT 0.4 K/uL (0-0.8); NEUTROPHIL (%) 55.7 % (45-76); NEUTROPHIL COUNT 2.5 K/uL (1.8-6.4); NRBC (%) 1.8 /100 WBC (0-0); PLATELET COUNT 63 K/uL (156-360); RBC DIS.WIDTH-CV 13.6 % (11.8-14.6); RED BLOOD COUNT 3.28 M/uL (4.00-5.50); WHITE BLOOD COUNT 4.5 K/uL (4.1-10.2)
[2016-09-03 07:36] LABS: ANION GAP 5 MEQ/L (2-14); CHLORIDE 106 MEQ/L (99-109); GFR ESTIMATE (CALCULATED) > 59 mL/min/; POTASSIUM 4.8 MEQ/L (3.7-5.4); SAMPLE HEMOLYSIS CHECK 0; SAMPLE ICTERIC CHECK 0; SAMPLE LIPEMIA CHECK 0; SODIUM 139 MEQ/L (136-147); UREA NITROGEN (BUN) 14 mg/dL (9-23)
[2016-09-03 07:44] LABS: GLUCOSE 174 mg/dL (70-99)
[2016-09-03 08:30] VITALS: BP 115/65
[2016-09-03 11:50] VITALS: BP 134/78
[2016-09-03 16:55] VITALS: BP 105/72
[2016-09-03 20:53] VITALS: BP 120/62
[2016-09-03 23:55] VITALS: BP 150/75
[2016-09-04 04:12] VITALS: BP 156/85
[2016-09-04 06:34] LABS: ANION GAP 5 MEQ/L (2-14); CHLORIDE 105 MEQ/L (99-109); GFR ESTIMATE (CALCULATED) > 59 mL/min/; GLUCOSE 90 mg/dL (70-99); POTASSIUM 5.3 MEQ/L (3.7-5.4); SAMPLE HEMOLYSIS CHECK 0; SAMPLE ICTERIC CHECK 0; SAMPLE LIPEMIA CHECK 0; SODIUM 140 MEQ/L (136-147); UREA NITROGEN (BUN) 30 mg/dL (9-23)
[2016-09-04 09:13] VITALS: BP 126/63
[2016-09-04 12:11] VITALS: BP 123/59
[2016-09-04 15:07] VITALS: BP 132/62
[2016-09-04 20:20] VITALS: BP 125/62
[2016-09-04 22:39] VITALS: BP 152/72
[2016-09-05] VITALS (7 sets, daily range): BP systolic 125–164; BP diastolic 65–79
[2016-09-06 03:58] VITALS: BP 148/70
[2016-09-06 06:20] LABS: EOSINOPHIL (%) 3.4 % (0-5); EOSINOPHIL COUNT 0.2 K/uL (0-0.3); HEMATOCRIT 35.5 % (38.0-50.0); IMMATURE GRANULOCYTE (%) 0.3 % (0.0-0.7); INSTRUMENT ABS NEUTROPHIL CT 3.5 K/uL; MCH 34.4 PG (29.0-34.0); MCHC 32.7 G/DL (30.0-36.0); MCV 105.3 FL (86-99); MEAN PLAT.VOLUME 12.4 uM^3 (9.0-12.4); MONOCYTE (%) 14.2 % (3-12); NEUTROPHIL (%) 52.1 % (45-76); NEUTROPHIL COUNT 3.5 K/uL (1.8-6.4); RBC DIS.WIDTH-CV 13.7 % (11.8-14.6); RBC DIS.WIDTH-SD 52.4 % (39-53); RED BLOOD COUNT 3.37 M/uL (4.00-5.50); WHITE BLOOD COUNT 6.8 K/uL (4.1-10.2)
[2016-09-06 06:21] LABS: PLATELET COUNT 91 K/uL (156-360)
[2016-09-06 06:22] LABS: ANION GAP 5 MEQ/L (2-14); CHLORIDE 105 MEQ/L (99-109); GFR ESTIMATE (CALCULATED) > 59 mL/min/; GLUCOSE 128 mg/dL (70-99); SAMPLE HEMOLYSIS CHECK 0; SAMPLE ICTERIC CHECK 0; SAMPLE LIPEMIA CHECK 0; SODIUM 142 MEQ/L (136-147); UREA NITROGEN (BUN) 42 mg/dL (9-23)
[2016-09-06 11:28] VITALS: BP 142/81
[2016-09-06 16:59] VITALS: BP 161/77
[2016-09-06 19:28] VITALS: BP 137/73
[2016-09-06 23:28] VITALS: BP 129/68
[2016-09-07 10:10] VITALS: BP 137/78
[2016-09-07 13:03] LABS: HEMATOCRIT 37.3 % (38.0-50.0); MCH 33.6 PG (29.0-34.0); MCHC 31.6 G/DL (30.0-36.0); MCV 106.3 FL (86-99); RBC DIS.WIDTH-CV 13.8 % (11.8-14.6); RBC DIS.WIDTH-SD 53.1 % (39-53); RED BLOOD COUNT 3.51 M/uL (4.00-5.50); WHITE BLOOD COUNT 7.1 K/uL (4.1-10.2)
[2016-09-07 13:28] LABS: PLAT.SUFFICIENCY DECREASED; PLATELET CLUMPS PRESENT - PLATELET COUNT APPEARS ADQ.
[2016-09-07 13:30] LABS: PLATELET COUNT UNABLE TO REPORT K/uL (156-360)
[2016-09-07 13:50] LABS: ALKALINE PHOSPHATASE 136 IU/L (3-129); ANION GAP 2 MEQ/L (2-14); CHLORIDE 106 MEQ/L (99-109); GFR ESTIMATE (CALCULATED) > 59 mL/min/; GLUCOSE 135 mg/dL (70-99); SAMPLE HEMOLYSIS CHECK 0; SAMPLE ICTERIC CHECK 0; SAMPLE LIPEMIA CHECK 0; SODIUM 141 MEQ/L (136-147); UREA NITROGEN (BUN) 44 mg/dL (9-23)
[2016-09-07 13:54] LABS: TOTAL BILIRUBIN 0.3 MG/DL (0.0-1.0)
[2016-09-07 18:31] VITALS: BP 120/59
[2016-09-07 20:02] VITALS: BP 104/61
[2016-09-08 06:55] VITALS: BP 131/55
[2016-09-08 07:45] LABS: ANION GAP 7 MEQ/L (2-14); CHLORIDE 105 MEQ/L (99-109); GFR ESTIMATE (CALCULATED) > 59 mL/min/; GLUCOSE 155 mg/dL (70-99); POTASSIUM 5.5 MEQ/L (3.7-5.4); SAMPLE HEMOLYSIS CHECK 0; SAMPLE ICTERIC CHECK 0; SAMPLE LIPEMIA CHECK 0; SODIUM 142 MEQ/L (136-147); UREA NITROGEN (BUN) 44 mg/dL (9-23)
[2016-09-08 11:06] VITALS: BP 140/62
[2016-09-08 16:15] VITALS: BP 135/65
[2016-09-08 23:00] VITALS: BP 146/76
[2016-09-09 06:41] LABS: ANION GAP 5 MEQ/L (2-14); CHLORIDE 107 MEQ/L (99-109); GFR ESTIMATE (CALCULATED) > 59 mL/min/; POTASSIUM 5.4 MEQ/L (3.7-5.4); SAMPLE HEMOLYSIS CHECK 0; SAMPLE ICTERIC CHECK 0; SAMPLE LIPEMIA CHECK 0; SODIUM 141 MEQ/L (136-147); UREA NITROGEN (BUN) 40 mg/dL (9-23)
[2016-09-09 06:43] LABS: GLUCOSE 67 mg/dL (70-99)
[2016-09-09 07:00] VITALS: BP 136/61
[2016-09-09 07:05] VITALS: BP 133/99
[2016-09-09] MEDS ORDERED: Chronulac,Cephulac,E GT (12:40)
[2016-09-09] MEDS ORDERED: DILANTIN-1125 MG/5 M GT (12:40)
[2016-09-09 15:10] VITALS: BP 133/64
[2016-09-09 22:44] VITALS: BP 164/78
[2016-09-10 09:07] VITALS: BP 125/77
[2016-09-10] MEDS ORDERED: TRAMADOL HCL50 MG PO (13:52)
[2016-09-10 16:03] VITALS: BP 132/62
== END 2016-09-10 17:30 | disposition home or self-care (01) | DRG 871 ==
LOC: EME → EDBD 13:38 → EME 13:38 → EDOF 16:26 → 5EAST 16:26 → 4EAST 16:26 → 5EAST 20:08 → 4EAST 09-01 18:29 → 5EAST 09-06 21:36
PROVIDERS: Emergency Medicine; Family Medicine Sports Medicine; Hospitalist
DX: A41.9 Sepsis, unspecified organism (principal); R65.20 Severe sepsis without septic shock; N39.0 Urinary tract infection, site not specified; B95.8 Unspecified staphylococcus as the cause of diseases classified elsewhere; B96.20 Unspecified Escherichia coli [E. coli] as the cause of diseases classified elsewhere; D61.818 Other pancytopenia; G93.41 Metabolic encephalopathy; E22.2 Syndrome of inappropriate secretion of antidiuretic hormone; G80.0 Spastic quadriplegic cerebral palsy; E87.5 Hyperkalemia; G40.909 Epilepsy, unspecified, not intractable, without status epilepticus; T42.0X5A Adverse effect of hydantoin derivatives, initial encounter; J98.11 Atelectasis; I95.9 Hypotension, unspecified; M54.6 Pain in thoracic spine; M62.81 Muscle weakness (generalized); B96.5 Pseudomonas (aeruginosa) (mallei) (pseudomallei) as the cause of diseases classified elsewhere; R32 Unspecified urinary incontinence; E03.9 Hypothyroidism, unspecified; F79 Unspecified intellectual disabilities; G89.29 Other chronic pain; J45.909 Unspecified asthma, uncomplicated; G43.909 Migraine, unspecified, not intractable, without status migrainosus; K21.9 Gastro-esophageal reflux disease without esophagitis; N28.9 Disorder of kidney and ureter, unspecified; R68.0 Hypothermia, not associated with low environmental temperature; Z93.1 Gastrostomy status; Z99.3 Dependence on wheelchair
CPT/HCPCS: 70450; 71010; 72128; 74000; 80048; 80048 91; 80053; 80185; 80202; 81003; 82140; 82948; 83605; 83690; 84439; 84443; 84484; 85025; 85027; 87040; 87641; 87801; 93005; 94799; 95819; 99281; 99285; J0692; J0696; J1100; J1650; J2270; J2543; J2930; J3370; J7030; J7050

== ENCOUNTER 2016-09-28 10:32 | Inpatient (IN) | payer OTHER ==
[~2016-09-28] VITALS: Ht 182.9 cm; Wt 69.0 kg
[~2016-09-28 10:32] MED LIST changes: +Chronulac,Cephulac,E GT; +TRAMADOL HCL50 MG PO
[2016-09-28 11:14] LABS: MCH 33.7 PG (29.0-34.0); MCHC 31.3 G/DL (30.0-36.0); MCV 107.7 FL (86-99); MEAN PLAT.VOLUME 11.5 uM^3 (9.0-12.4); NRBC (%) 0.9 /100 WBC (0-0); RBC DIS.WIDTH-CV 13.5 % (11.8-14.6); RBC DIS.WIDTH-SD 53.1 % (39-53); RED BLOOD COUNT 2.97 M/uL (4.00-5.50); WHITE BLOOD COUNT 6.5 K/uL (4.1-10.2)
[2016-09-28 11:15] LABS: PLATELET COUNT 146 K/uL (156-360)
[2016-09-28 11:19] LABS: ADD MIUA? YES; BILIRUBIN NEGATIVE; BLOOD MODERATE; COLOR STRAW ((YELLOW)); GLUCOSE (STRIP) NEGATIVE; KETONES NEGATIVE; LEUKOCYTES MODERATE; NITRITE NEGATIVE; PROTEIN (STRIP) NEGATIVE; SPECIFIC GRAVITY 1.003 (1.000-1.030); UROBILINOGEN 0.2 MG/DL (0.2-1.0)
[2016-09-28 11:23] LABS: CHLORIDE 105 mEq/L (99-109); POTASSIUM 4.6 mEq/L (3.7-5.4); SODIUM 138 mEq/L (136-147)
[2016-09-28 11:24] LABS: BACTERIA RARE /HPF; CALCIUM OXALATE CRYSTALS 2+ /HPF; EPITHELIAL CELLS NONE SEEN /HPF; MUCUS TRACE /LPF; RED BLOOD CELLS 0-5 /HPF (0-5); UCUL ADDED? NO
[2016-09-28 11:25] LABS: GLUCOSE 101 mg/dL (70-99)
[2016-09-28 11:26] LABS: ANION GAP 4 MEQ/L (2-14)
[2016-09-28 11:29] LABS: GFR ESTIMATE (CALCULATED) > 59 mL/min/; UREA NITROGEN (BUN) 13 mg/dL (9-23)
[2016-09-28] MEDS ORDERED: [UNRECOGNIZED DRUG - OTHER] DT (12:43)
[2016-09-28] MEDS ORDERED: VASELINE454 GM TP (12:44)
[2016-09-28] MEDS ORDERED: MIRALAX17 GM GT (12:49)
[2016-09-28] MEDS ORDERED: BISAC-EVAC10 MG PR (12:57)
[2016-09-28] MEDS ORDERED: LOMOTIL TABLET1 EACH PO (12:58)
[2016-09-28 18:12] VITALS: BP 115/67
[2016-09-28 20:00] VITALS: BP 138/83
[2016-09-28 22:34] LABS: METH RESISTANT S AUREUS PCR POSITIVE (NEGATIVE)
[2016-09-28 23:13] LABS: PROBE CHECK PASS
[2016-09-29] VITALS (7 sets, daily range): BP systolic 132–165; BP diastolic 65–96
[2016-09-29 05:32] LABS: EOSINOPHIL (%) 2.6 % (0-5); EOSINOPHIL COUNT 0.1 K/uL (0-0.3); HEMATOCRIT 31.6 % (38.0-50.0); IMMATURE GRANULOCYTE (%) 0.4 % (0.0-0.7); INSTRUMENT ABS NEUTROPHIL CT 2.5 K/uL; LYMPHOCYTE COUNT 2.1 K/uL (1.0-2.8); MCH 34.7 PG (29.0-34.0); MCHC 32.3 G/DL (30.0-36.0); MCV 107.5 FL (86-99); MEAN PLAT.VOLUME 11.7 uM^3 (9.0-12.4); MONOCYTE (%) 11.8 % (3-12); MONOCYTE COUNT 0.6 K/uL (0-0.8); NEUTROPHIL (%) 45.9 % (45-76); NEUTROPHIL COUNT 2.5 K/uL (1.8-6.4); NRBC (%) 0.9 /100 WBC (0-0); PLATELET COUNT 144 K/uL (156-360); RBC DIS.WIDTH-CV 13.7 % (11.8-14.6); RBC DIS.WIDTH-SD 53.7 % (39-53); RED BLOOD COUNT 2.94 M/uL (4.00-5.50); WHITE BLOOD COUNT 5.4 K/uL (4.1-10.2)
[2016-09-29 05:56] LABS: ANION GAP 4 MEQ/L (2-14); CHLORIDE 106 MEQ/L (99-109); GFR ESTIMATE (CALCULATED) > 59 mL/min/; GLUCOSE 70 mg/dL (70-99); POTASSIUM 4.4 MEQ/L (3.7-5.4); SAMPLE HEMOLYSIS CHECK 0; SAMPLE ICTERIC CHECK 0; SAMPLE LIPEMIA CHECK 0; SODIUM 140 MEQ/L (136-147); UREA NITROGEN (BUN) 9 mg/dL (9-23)
[2016-09-30 03:40] VITALS: BP 137/76
[2016-09-30 05:50] LABS: EOSINOPHIL (%) 3.3 % (0-5); EOSINOPHIL COUNT 0.2 K/uL (0-0.3); IMMATURE GRANULOCYTE (%) 0.5 % (0.0-0.7); INSTRUMENT ABS NEUTROPHIL CT 2.6 K/uL; LYMPHOCYTE COUNT 2.5 K/uL (1.0-2.8); MCH 33.8 PG (29.0-34.0); MCHC 31.6 G/DL (30.0-36.0); MEAN PLAT.VOLUME 11.6 uM^3 (9.0-12.4); MONOCYTE COUNT 0.6 K/uL (0-0.8); NEUTROPHIL (%) 44.1 % (45-76); NEUTROPHIL COUNT 2.6 K/uL (1.8-6.4); NRBC (%) 1.2 /100 WBC (0-0); PLATELET COUNT 148 K/uL (156-360); RBC DIS.WIDTH-CV 13.8 % (11.8-14.6); RBC DIS.WIDTH-SD 54.2 % (39-53); RED BLOOD COUNT 2.99 M/uL (4.00-5.50)
[2016-09-30 08:36] VITALS: BP 141/69
[2016-09-30 08:37] LABS: ANION GAP 6 MEQ/L (2-14); CHLORIDE 105 MEQ/L (99-109); GFR ESTIMATE (CALCULATED) > 59 mL/min/; POTASSIUM 4.3 MEQ/L (3.7-5.4); SAMPLE HEMOLYSIS CHECK 0; SAMPLE ICTERIC CHECK 0; SAMPLE LIPEMIA CHECK 0; SODIUM 138 MEQ/L (136-147); UREA NITROGEN (BUN) 8 mg/dL (9-23)
[2016-09-30 08:43] LABS: GLUCOSE 121 mg/dL (70-99)
[2016-09-30 12:24] VITALS: BP 139/76
[2016-09-30 17:00] VITALS: BP 154/70
[2016-09-30 20:00] VITALS: BP 156/80
[2016-10-01] VITALS (7 sets, daily range): BP systolic 115–176; BP diastolic 57–97
[2016-10-02] VITALS (7 sets, daily range): BP systolic 105–194; BP diastolic 56–88
[2016-10-02 06:39] LABS: ANION GAP 3 MEQ/L (2-14); CHLORIDE 98 MEQ/L (99-109); GFR ESTIMATE (CALCULATED) > 59 mL/min/; POTASSIUM 5.1 MEQ/L (3.7-5.4); SAMPLE HEMOLYSIS CHECK 0; SAMPLE ICTERIC CHECK 0; SAMPLE LIPEMIA CHECK 0; SODIUM 133 MEQ/L (136-147); UREA NITROGEN (BUN) 9 mg/dL (9-23)
[2016-10-02 06:40] LABS: GLUCOSE 66 mg/dL (70-99)
[2016-10-02 08:07] LABS: POINT-OF-CARE METER ID UU13113781
[2016-10-03 03:45] VITALS: BP 127/63
[2016-10-03 06:51] LABS: EOSINOPHIL (%) 2.2 % (0-5); EOSINOPHIL COUNT 0.1 K/uL (0-0.3); HEMATOCRIT 30.2 % (38.0-50.0); IMMATURE GRANULOCYTE (%) 0.7 % (0.0-0.7); INSTRUMENT ABS NEUTROPHIL CT 2.9 K/uL; LYMPHOCYTE COUNT 2.4 K/uL (1.0-2.8); MCH 33.3 PG (29.0-34.0); MCHC 32.5 G/DL (30.0-36.0); MEAN PLAT.VOLUME 12.6 uM^3 (9.0-12.4); MONOCYTE (%) 10.3 % (3-12); MONOCYTE COUNT 0.6 K/uL (0-0.8); NEUTROPHIL (%) 47.3 % (45-76); NEUTROPHIL COUNT 2.9 K/uL (1.8-6.4); NRBC (%) 2.7 /100 WBC (0-0); PLATELET COUNT 139 K/uL (156-360); RBC DIS.WIDTH-CV 13.9 % (11.8-14.6); RBC DIS.WIDTH-SD 52.2 % (39-53); RED BLOOD COUNT 2.94 M/uL (4.00-5.50)
[2016-10-03 07:13] LABS: MCV 102.7 FL (86-99)
[2016-10-03 08:30] VITALS: BP 123/62
[2016-10-03 09:04] LABS: ANION GAP 2 MEQ/L (2-14); CHLORIDE 95 MEQ/L (99-109); POTASSIUM 5.5 MEQ/L (3.7-5.4); SAMPLE HEMOLYSIS CHECK 0; SAMPLE ICTERIC CHECK 0; SAMPLE LIPEMIA CHECK 0; SODIUM 128 MEQ/L (136-147)
[2016-10-03 09:10] LABS: GFR ESTIMATE (CALCULATED) > 59 mL/min/; GLUCOSE 80 mg/dL (70-99); UREA NITROGEN (BUN) 14 mg/dL (9-23)
[2016-10-03 11:44] VITALS: BP 150/79
[2016-10-03 15:53] VITALS: BP 121/60
[2016-10-03 20:25] VITALS: BP 131/82
[2016-10-04] VITALS (8 sets, daily range): BP systolic 114–153; BP diastolic 64–92
[2016-10-04 06:40] LABS: ANION GAP 5 MEQ/L (2-14); CHLORIDE 95 MEQ/L (99-109); GFR ESTIMATE (CALCULATED) > 59 mL/min/; GLUCOSE 75 mg/dL (70-99); POTASSIUM 5.6 MEQ/L (3.7-5.4); SAMPLE HEMOLYSIS CHECK 2; SAMPLE ICTERIC CHECK 0; SAMPLE LIPEMIA CHECK 0; SODIUM 127 MEQ/L (136-147); UREA NITROGEN (BUN) 15 mg/dL (9-23)
[2016-10-05] VITALS: BP 130/90
[2016-10-05 03:20] VITALS: BP 125/77
[2016-10-05 05:57] LABS: ANION GAP 5 MEQ/L (2-14); CHLORIDE 95 MEQ/L (99-109); GFR ESTIMATE (CALCULATED) > 59 mL/min/; GLUCOSE 86 mg/dL (70-99); POTASSIUM 4.8 MEQ/L (3.7-5.4); SAMPLE HEMOLYSIS CHECK 0; SAMPLE ICTERIC CHECK 0; SAMPLE LIPEMIA CHECK 0; SODIUM 127 MEQ/L (136-147); UREA NITROGEN (BUN) 13 mg/dL (9-23)
[2016-10-05 07:26] VITALS: BP 116/75
[2016-10-05 12:26] VITALS: BP 103/59
[2016-10-05 15:08] VITALS: BP 114/59
[2016-10-05 19:08] VITALS: BP 102/57
[2016-10-06] VITALS (7 sets, daily range): BP systolic 94–128; BP diastolic 57–77
[2016-10-06 06:49] LABS: ANION GAP 6 MEQ/L (2-14); CHLORIDE 96 MEQ/L (99-109); GFR ESTIMATE (CALCULATED) > 59 mL/min/; GLUCOSE 83 mg/dL (70-99); POTASSIUM 5.4 MEQ/L (3.7-5.4); SAMPLE HEMOLYSIS CHECK 2; SAMPLE ICTERIC CHECK 0; SAMPLE LIPEMIA CHECK 0; SODIUM 129 MEQ/L (136-147); UREA NITROGEN (BUN) 13 mg/dL (9-23)
[2016-10-06 10:06] LABS: HEMATOCRIT 31.8 % (38.0-50.0); MCH 35.3 PG (29.0-34.0); MCHC 33.3 G/DL (30.0-36.0); NRBC (%) 0.3 /100 WBC (0-0); RBC DIS.WIDTH-CV 14.1 % (11.8-14.6); RBC DIS.WIDTH-SD 54.4 % (39-53); WHITE BLOOD COUNT 7.8 K/uL (4.1-10.2)
[2016-10-06 10:36] LABS: MEAN PLAT.VOLUME 11.2 uM^3 (9.0-12.4); PLAT.SUFFICIENCY DECREASED
[2016-10-06 10:46] LABS: PLATELET COUNT 94 K/uL (156-360)
[2016-10-07 04:11] VITALS: BP 105/53
[2016-10-07 05:59] LABS: HEMATOCRIT 30.7 % (38.0-50.0); MCH 33.2 PG (29.0-34.0); MCHC 31.6 G/DL (30.0-36.0); MCV 105.1 FL (86-99); NRBC (%) 0.4 /100 WBC (0-0); RBC DIS.WIDTH-CV 13.7 % (11.8-14.6); RED BLOOD COUNT 2.92 M/uL (4.00-5.50); WHITE BLOOD COUNT 5.6 K/uL (4.1-10.2)
[2016-10-07 06:55] LABS: ANION GAP 3 MEQ/L (2-14); CHLORIDE 98 MEQ/L (99-109); GFR ESTIMATE (CALCULATED) > 59 mL/min/; GLUCOSE 69 mg/dL (70-99); MAGNESIUM 1.6 mg/dl (1.3-2.7); POTASSIUM 4.7 MEQ/L (3.7-5.4); SAMPLE HEMOLYSIS CHECK 0; SAMPLE ICTERIC CHECK 0; SAMPLE LIPEMIA CHECK 0; SODIUM 130 MEQ/L (136-147); UREA NITROGEN (BUN) 11 mg/dL (9-23)
[2016-10-07 07:15] LABS: MEAN PLAT.VOLUME 11.4 uM^3 (9.0-12.4); PLAT.SUFFICIENCY DECREASED; PLATELET COUNT 95 K/uL (156-360)
[2016-10-07 08:28] VITALS: BP 130/63
[2016-10-07 12:45] VITALS: BP 124/72
[2016-10-07 16:30] VITALS: BP 154/70
[2016-10-07 19:46] VITALS: BP 136/65
[2016-10-07 23:32] VITALS: BP 139/71
[2016-10-08 04:36] VITALS: BP 123/75
[2016-10-08 08:44] VITALS: BP 132/80
[2016-10-08 12:14] VITALS: BP 136/69
[2016-10-08 15:01] VITALS: BP 140/71
[2016-10-08 19:53] VITALS: BP 143/76
[2016-10-08 23:33] VITALS: BP 138/80
[2016-10-09 03:46] VITALS: BP 136/78
[2016-10-09 05:36] LABS: EOSINOPHIL COUNT 0.1 K/uL (0-0.3); HEMATOCRIT 29.4 % (38.0-50.0); IMMATURE GRANULOCYTE (%) 0.4 % (0.0-0.7); INSTRUMENT ABS NEUTROPHIL CT 3.3 K/uL; LYMPHOCYTE COUNT 1.4 K/uL (1.0-2.8); MCV 103.2 FL (86-99); MONOCYTE (%) 12.3 % (3-12); MONOCYTE COUNT 0.7 K/uL (0-0.8); NEUTROPHIL (%) 60.2 % (45-76); NEUTROPHIL COUNT 3.3 K/uL (1.8-6.4); NRBC (%) 0.4 /100 WBC (0-0); PLATELET COUNT 90 K/uL (156-360); RBC DIS.WIDTH-CV 13.3 % (11.8-14.6); RED BLOOD COUNT 2.85 M/uL (4.00-5.50); WHITE BLOOD COUNT 5.5 K/uL (4.1-10.2)
[2016-10-09 06:03] LABS: GFR ESTIMATE (CALCULATED) > 59 mL/min/; GLUCOSE 71 mg/dL (70-99); SAMPLE HEMOLYSIS CHECK 0; SAMPLE ICTERIC CHECK 0; SAMPLE LIPEMIA CHECK 0; UREA NITROGEN (BUN) 6 mg/dL (9-23)
[2016-10-09 06:13] LABS: ANION GAP 3 MEQ/L (2-14); CHLORIDE 94 MEQ/L (99-109); POTASSIUM 4.6 MEQ/L (3.7-5.4); SODIUM 124 MEQ/L (136-147)
[2016-10-09 08:01] VITALS: BP 118/74
[2016-10-09 12:30] VITALS: BP 117/68
[2016-10-09 16:08] VITALS: BP 131/65
[2016-10-09 20:41] VITALS: BP 157/74
[2016-10-09 22:45] VITALS: BP 180/78
[2016-10-10 05:40] VITALS: BP 154/70
[2016-10-10 08:40] VITALS: BP 132/76
[2016-10-10 13:00] VITALS: BP 156/89
[2016-10-10 16:24] VITALS: BP 150/86
[2016-10-10 19:15] VITALS: BP 145/84
[2016-10-10 23:00] VITALS: BP 136/71
[2016-10-11 03:00] VITALS: BP 148/92
[2016-10-11 05:21] LABS: EOSINOPHIL (%) 1.3 % (0-5); EOSINOPHIL COUNT 0.1 K/uL (0-0.3); HEMATOCRIT 30.2 % (38.0-50.0); IMMATURE GRANULOCYTE (%) 0.7 % (0.0-0.7); INSTRUMENT ABS NEUTROPHIL CT 2.9 K/uL; LYMPHOCYTE COUNT 2.3 K/uL (1.0-2.8); MCH 32.8 PG (29.0-34.0); MCHC 33.4 G/DL (30.0-36.0); MEAN PLAT.VOLUME 10.3 uM^3 (9.0-12.4); MONOCYTE COUNT 0.7 K/uL (0-0.8); NEUTROPHIL (%) 48.9 % (45-76); NEUTROPHIL COUNT 2.9 K/uL (1.8-6.4); RBC DIS.WIDTH-CV 12.9 % (11.8-14.6); RBC DIS.WIDTH-SD 46.1 % (39-53); RED BLOOD COUNT 3.08 M/uL (4.00-5.50)
[2016-10-11 05:24] LABS: MCV 98.1 FL (86-99); PLATELET COUNT 119 K/uL (156-360)
[2016-10-11 06:15] LABS: ANION GAP 6 MEQ/L (2-14); CHLORIDE 87 MEQ/L (99-109); GFR ESTIMATE (CALCULATED) > 59 mL/min/; GLUCOSE 84 mg/dL (70-99); POTASSIUM 4.4 MEQ/L (3.7-5.4); SAMPLE HEMOLYSIS CHECK 0; SAMPLE ICTERIC CHECK 0; SAMPLE LIPEMIA CHECK 0; SODIUM 121 MEQ/L (136-147); UREA NITROGEN (BUN) 5 mg/dL (9-23)
[2016-10-11 09:20] VITALS: BP 129/69
[2016-10-11 12:03] VITALS: BP 143/82
[2016-10-11 17:48] VITALS: BP 152/83
[2016-10-11 19:53] VITALS: BP 122/69
[2016-10-12 00:15] VITALS: BP 139/92
[2016-10-12 05:16] VITALS: BP 149/86
[2016-10-12 07:21] LABS: ANION GAP 6 MEQ/L (2-14); CHLORIDE 93 MEQ/L (99-109); GFR ESTIMATE (CALCULATED) > 59 mL/min/; GLUCOSE 84 mg/dL (70-99); POTASSIUM 4.2 MEQ/L (3.7-5.4); SAMPLE HEMOLYSIS CHECK 0; SAMPLE ICTERIC CHECK 0; SAMPLE LIPEMIA CHECK 0; SODIUM 127 MEQ/L (136-147); UREA NITROGEN (BUN) 6 mg/dL (9-23)
[2016-10-12] MEDS ORDERED: Chronulac,Cephulac,E GT (08:03)
[2016-10-12] MEDS ORDERED: SODIUM CHLORIDE1 G1 GT (08:04)
[2016-10-12] MEDS ORDERED: SAMSCA30 MG PO (08:05)
[2016-10-12 08:40] VITALS: BP 121/75
[2016-10-12 11:20] VITALS: BP 128/77
[2016-10-12 16:34] VITALS: BP 144/84
[2016-10-12] MEDS ORDERED: SAMSCA30 MG GT (17:45)
== END 2016-10-12 19:11 | disposition home or self-care (01) | DRG 948 ==
LOC: EME 10:32 → 4EAST 14:50 → EDOF 14:50 → ENRESERV 14:55 → 4EAST 18:09
PROVIDERS: Emergency Medicine; Family Medicine; Family Medicine Sports Medicine; Surgery
DX: R68.0 Hypothermia, not associated with low environmental temperature (principal); T38.895A Adverse effect of other hormones and synthetic substitutes, initial encounter; K63.89 Other specified diseases of intestine; K72.90 Hepatic failure, unspecified without coma; E22.2 Syndrome of inappropriate secretion of antidiuretic hormone; K56.7 Ileus, unspecified; E87.5 Hyperkalemia; G80.4 Ataxic cerebral palsy; D64.9 Anemia, unspecified; E03.9 Hypothyroidism, unspecified; G40.909 Epilepsy, unspecified, not intractable, without status epilepticus; I10 Essential (primary) hypertension; J45.909 Unspecified asthma, uncomplicated; G43.909 Migraine, unspecified, not intractable, without status migrainosus; K21.9 Gastro-esophageal reflux disease without esophagitis; G89.29 Other chronic pain; M54.5 Low back pain; Z86.011 Personal history of benign neoplasm of the brain; Z87.442 Personal history of urinary calculi; Z93.1 Gastrostomy status; Z99.3 Dependence on wheelchair
CPT/HCPCS: 71020; 74000; 74020; 74150; 74176; 80048; 80185; 81003; 82140; 82948; 83605; 83735; 84100; 84439; 84443; 85025; 85027; 87040; 87077; 87086; 87186; 87641; 93005; 99281; 99285; C1753; C9113; J0696; J1650; J1885; J7030; J7050

== ENCOUNTER 2016-10-20 23:03 | Inpatient (IN) | payer OTHER ==
[~2016-10-20] VITALS: Ht 162.6 cm; Wt 84.6 kg
[~2016-10-20 23:03] MED LIST changes: +BISAC-EVAC10 MG PR; +SAMSCA30 MG GT; +SODIUM CHLORIDE1 G1 GT; +VASELINE454 GM TP
[2016-10-20] MEDS ORDERED: DILANTIN-1125 MG/5 M GT (23:41)
[2016-10-20] MEDS ORDERED: ENULOSE10 GM/15 M GT (23:44)
[2016-10-20] MEDS ORDERED: SODIUM CHLORIDE1 G1 PO (23:51)
[2016-10-20] MEDS ORDERED: SAMSCA30 MG PO (23:52)
[2016-10-20 23:54] LABS: BASE EXCESS 9.7 mEq/L (-3 to +3); BICARBONATE 35.3 mEq/L (22-26); CARBOXY HGB 2.4 % (0-5); COMMENTS - BLOOD GASES C+; DEVICE VENT; METHEMOGLOBIN 1.4 % (0-1.5); PCO2 52 mm Hg (35-45); PO2 359 mm Hg (80-100); SITE RR; pH 7.44 (7.35-7.45)
[2016-10-20 23:55] LABS: FI02 100 %; MECHANICAL RATE 14 resp/min; MODE AC; PEEP 5 CM/H20; TIDAL VOLUME 500 ML; TOTAL RESP RATE 14 resp/min
[2016-10-21] VITALS (21 sets, daily range): BP systolic 77–123; BP diastolic 50–76
[2016-10-21 00:20] LABS: CHLORIDE 95 mEq/L (99-109); POTASSIUM 4.7 mEq/L (3.7-5.4); SODIUM 134 mEq/L (136-147)
[2016-10-21 00:22] LABS: EOSINOPHIL (%) 1.6 % (0-5); EOSINOPHIL COUNT 0.1 K/uL (0-0.3); HEMATOCRIT 34.8 % (38.0-50.0); IMMATURE GRANULOCYTE (%) 0.8 % (0.0-0.7); IMMATURE GRANULOCYTE COUNT 0.1 K/uL; INSTRUMENT ABS NEUTROPHIL CT 5.8 K/uL; LYMPHOCYTE COUNT 0.9 K/uL (1.0-2.8); MCH 33.6 PG (29.0-34.0); MCV 108.4 FL (86-99); MEAN PLAT.VOLUME 10.2 uM^3 (9.0-12.4); MONOCYTE (%) 10.8 % (3-12); MONOCYTE COUNT 0.8 K/uL (0-0.8); NEUTROPHIL (%) 74.8 % (45-76); NEUTROPHIL COUNT 5.8 K/uL (1.8-6.4); NRBC (%) 2.1 /100 WBC (0-0); PLATELET COUNT 131 K/uL (156-360); RBC DIS.WIDTH-CV 13.5 % (11.8-14.6); RBC DIS.WIDTH-SD 54.3 % (39-53); RED BLOOD COUNT 3.21 M/uL (4.00-5.50); WHITE BLOOD COUNT 7.7 K/uL (4.1-10.2)
[2016-10-21 00:23] LABS: GLUCOSE 136 mg/dL (70-99)
[2016-10-21 00:24] LABS: ANION GAP 8 MEQ/L (2-14)
[2016-10-21 00:25] LABS: TOTAL BILIRUBIN 0.3 mg/dL (0.0-1.0)
[2016-10-21 00:26] LABS: ALKALINE PHOSPHATASE 149 IU/L (3-129); GFR ESTIMATE (CALCULATED) > 59 mL/min/
[2016-10-21 00:27] LABS: UREA NITROGEN (BUN) 13 mg/dL (9-23)
[2016-10-21 00:30] LABS: LIPASE 28 U/L (1.0-51.0)
[2016-10-21 00:32] LABS: TROP-I INTERPRETATION NEGATIVE; TROPONIN-I 0.02 ng/mL (0.0-0.30)
[2016-10-21 04:17] LABS: SAMPLE HEMOLYSIS CHECK 1; SAMPLE ICTERIC CHECK 0; SAMPLE LIPEMIA CHECK 0; TRIGLYCERIDES 112 MG/DL (Normal: <150)
[2016-10-21 05:43] LABS: METH RESISTANT S AUREUS PCR POSITIVE (NEGATIVE)
[2016-10-21 05:46] LABS: PROBE CHECK PASS
[2016-10-21 07:21] LABS: ADD MIUA? YES; BILIRUBIN NEGATIVE; BLOOD NEGATIVE; COLOR YELLOW ((YELLOW)); GLUCOSE (STRIP) NEGATIVE; KETONES NEGATIVE; LEUKOCYTES LARGE; NITRITE NEGATIVE; PROTEIN (STRIP) NEGATIVE; UROBILINOGEN 0.2 MG/DL (0.2-1.0)
[2016-10-21 07:28] LABS: SPECIFIC GRAVITY 1.073 (1.000-1.030)
[2016-10-21 07:57] LABS: BACTERIA RARE /HPF; EPITHELIAL CELLS RARE /HPF; MUCUS TRACE /LPF; RED BLOOD CELLS 20-30 /HPF (0-5); UCUL ADDED? YES; WHITE BLOOD CELLS TNTC /HPF (0-5)
[2016-10-22] VITALS (24 sets, daily range): BP systolic 85–146; BP diastolic 53–88
[2016-10-22 06:36] LABS: HEMATOCRIT 30.5 % (38.0-50.0); MCH 33.1 PG (29.0-34.0); MCHC 30.5 G/DL (30.0-36.0); MCV 108.5 FL (86-99); RBC DIS.WIDTH-SD 57.6 % (39-53); RED BLOOD COUNT 2.81 M/uL (4.00-5.50); WHITE BLOOD COUNT 11.1 K/uL (4.1-10.2)
[2016-10-22 06:37] LABS: EOSINOPHIL (%) 2.8 % (0-5); EOSINOPHIL COUNT 0.3 K/uL (0-0.3); IMMATURE GRANULOCYTE (%) 0.5 % (0.0-0.7); IMMATURE GRANULOCYTE COUNT 0.1 K/uL; INSTRUMENT ABS NEUTROPHIL CT 7.7 K/uL; LYMPHOCYTE COUNT 1.6 K/uL (1.0-2.8); MEAN PLAT.VOLUME 10.4 uM^3 (9.0-12.4); MONOCYTE (%) 12.6 % (3-12); MONOCYTE COUNT 1.4 K/uL (0-0.8); NEUTROPHIL (%) 69.2 % (45-76); NEUTROPHIL COUNT 7.7 K/uL (1.8-6.4); NRBC (%) 0.2 /100 WBC (0-0); PLATELET COUNT 130 K/uL (156-360); RBC DIS.WIDTH-CV 14.6 % (11.8-14.6)
[2016-10-22 07:08] LABS: ALKALINE PHOSPHATASE 95 IU/L (3-129); ANION GAP 6 MEQ/L (2-14); CHLORIDE 102 MEQ/L (99-109); DIRECT BILIRUBIN 0.2 mg/dL (0.0-0.3); GFR ESTIMATE (CALCULATED) > 59 mL/min/; GLUCOSE 121 mg/dL (70-99); SAMPLE HEMOLYSIS CHECK 0; SAMPLE ICTERIC CHECK 0; SAMPLE LIPEMIA CHECK 0; SODIUM 139 MEQ/L (136-147); TOTAL BILIRUBIN 0.4 MG/DL (0.0-1.0); UREA NITROGEN (BUN) 12 mg/dL (9-23)
[2016-10-22 07:09] LABS: POTASSIUM 3.6 MEQ/L (3.7-5.4)
[2016-10-22 07:10] LABS: ALKALINE PHOSPHATASE 97 IU/L (3-129); ANION GAP 5 MEQ/L (2-14); CHLORIDE 102 MEQ/L (99-109); CREATINE KINASE 39 IU/L (1-294); GFR ESTIMATE (CALCULATED) > 59 mL/min/; GLUCOSE 120 mg/dL (70-99); POTASSIUM 3.5 MEQ/L (3.7-5.4); SAMPLE HEMOLYSIS CHECK 0; SAMPLE ICTERIC CHECK 0; SAMPLE LIPEMIA CHECK 0; SODIUM 138 MEQ/L (136-147); TOTAL BILIRUBIN 0.4 MG/DL (0.0-1.0); UREA NITROGEN (BUN) 12 mg/dL (9-23)
[2016-10-22 13:00] LABS: MAGNESIUM 1.8 mg/dl (1.3-2.7)
[2016-10-23] VITALS (21 sets, daily range): BP systolic 101–144; BP diastolic 54–101
[2016-10-23 15:38] LABS: EOSINOPHIL (%) 4.4 % (0-5); EOSINOPHIL COUNT 0.4 K/uL (0-0.3); HEMATOCRIT 28.6 % (38.0-50.0); IMMATURE GRANULOCYTE (%) 0.3 % (0.0-0.7); INSTRUMENT ABS NEUTROPHIL CT 6.2 K/uL; LYMPHOCYTE COUNT 1.3 K/uL (1.0-2.8); MCH 34.2 PG (29.0-34.0); MCHC 30.8 G/DL (30.0-36.0); MCV 111.3 FL (86-99); MEAN PLAT.VOLUME 10.3 uM^3 (9.0-12.4); MONOCYTE (%) 10.8 % (3-12); NEUTROPHIL COUNT 6.2 K/uL (1.8-6.4); PLATELET COUNT 140 K/uL (156-360); RBC DIS.WIDTH-CV 14.8 % (11.8-14.6); RBC DIS.WIDTH-SD 60.4 % (39-53); RED BLOOD COUNT 2.57 M/uL (4.00-5.50); WHITE BLOOD COUNT 8.8 K/uL (4.1-10.2)
[2016-10-23 16:01] LABS: ANION GAP 3 MEQ/L (2-14); CHLORIDE 107 MEQ/L (99-109); GFR ESTIMATE (CALCULATED) > 59 mL/min/; GLUCOSE 118 mg/dL (70-99); POTASSIUM 4.1 MEQ/L (3.7-5.4); SAMPLE HEMOLYSIS CHECK 0; SAMPLE ICTERIC CHECK 0; SAMPLE LIPEMIA CHECK 0; SODIUM 139 MEQ/L (136-147); UREA NITROGEN (BUN) 7 mg/dL (9-23)
[2016-10-24] VITALS (17 sets, daily range): BP systolic 100–154; BP diastolic 63–87
[2016-10-24 09:05] LABS: EOSINOPHIL (%) 4.9 % (0-5); EOSINOPHIL COUNT 0.4 K/uL (0-0.3); HEMATOCRIT 28.6 % (38.0-50.0); IMMATURE GRANULOCYTE (%) 0.4 % (0.0-0.7); INSTRUMENT ABS NEUTROPHIL CT 5.2 K/uL; LYMPHOCYTE COUNT 1.2 K/uL (1.0-2.8); MCH 34.6 PG (29.0-34.0); MCHC 31.5 G/DL (30.0-36.0); MEAN PLAT.VOLUME 10.5 uM^3 (9.0-12.4); MONOCYTE (%) 10.8 % (3-12); MONOCYTE COUNT 0.8 K/uL (0-0.8); NEUTROPHIL (%) 67.8 % (45-76); NEUTROPHIL COUNT 5.2 K/uL (1.8-6.4); PLATELET COUNT 165 K/uL (156-360); RBC DIS.WIDTH-SD 59.7 % (39-53); WHITE BLOOD COUNT 7.7 K/uL (4.1-10.2)
[2016-10-24 09:49] LABS: ANION GAP 5 MEQ/L (2-14); CHLORIDE 108 MEQ/L (99-109); GFR ESTIMATE (CALCULATED) > 59 mL/min/; GLUCOSE 99 mg/dL (70-99); POTASSIUM 3.9 MEQ/L (3.7-5.4); SAMPLE HEMOLYSIS CHECK 0; SAMPLE ICTERIC CHECK 0; SAMPLE LIPEMIA CHECK 0; SODIUM 141 MEQ/L (136-147); UREA NITROGEN (BUN) 7 mg/dL (9-23)
[2016-10-25] VITALS (16 sets, daily range): BP systolic 94–157; BP diastolic 54–86
[2016-10-25 06:25] LABS: HEMATOCRIT 27.3 % (38.0-50.0); MCH 34.3 PG (29.0-34.0); MCHC 31.1 G/DL (30.0-36.0); MCV 110.1 FL (86-99); MEAN PLAT.VOLUME 10.5 uM^3 (9.0-12.4); PLATELET COUNT 165 K/uL (156-360); RBC DIS.WIDTH-CV 14.9 % (11.8-14.6); RBC DIS.WIDTH-SD 60.3 % (39-53); RED BLOOD COUNT 2.48 M/uL (4.00-5.50); WHITE BLOOD COUNT 4.8 K/uL (4.1-10.2)
[2016-10-25 06:47] LABS: ANION GAP 6 MEQ/L (2-14); CHLORIDE 113 MEQ/L (99-109); GFR ESTIMATE (CALCULATED) > 59 mL/min/; GLUCOSE 126 mg/dL (70-99); MAGNESIUM 2.2 mg/dl (1.3-2.7); POTASSIUM 3.8 MEQ/L (3.7-5.4); SAMPLE HEMOLYSIS CHECK 0; SAMPLE ICTERIC CHECK 0; SAMPLE LIPEMIA CHECK 0; SODIUM 146 MEQ/L (136-147); UREA NITROGEN (BUN) 7 mg/dL (9-23)
[2016-10-25 07:03] LABS: ABS NEUTROPHIL COUNT 3.1; ANISOCYTOSIS 2+; EOSINOPHIL ABS CT 0.4; EOSINOPHILS 7.9 % (0-5.0); HEMATOLOGY COMMENT 1 SN; INSTRUMENT ABS NEUTROPHIL CT 2.7 K/uL; LYMPHOCYTES 23.7 % (15.0-45.0); MACROCYTES 2+; NUCLEATED RBC'S 0.9; PLAT.SUFFICIENCY ADEQUATE
[2016-10-26 08:00] VITALS: BP 145/103
[2016-10-26 10:00] VITALS: BP 147/93
[2016-10-26 12:00] VITALS: BP 134/85
[2016-10-26 16:00] VITALS: BP 180/95
[2016-10-27 00:46] VITALS: BP 129/77
[2016-10-27 07:46] VITALS: BP 154/90
[2016-10-27 16:52] VITALS: BP 155/84
[2016-10-27 23:10] VITALS: BP 169/81
[2016-10-28 08:17] VITALS: BP 140/89
[2016-10-28] MEDS ORDERED: SAMSCA30 MG PO (11:53)
[2016-10-28 16:00] VITALS: BP 138/84
[2016-10-28 23:58] VITALS: BP 156/72
[2016-10-29 07:15] LABS: EOSINOPHIL (%) 6.3 % (0-5); EOSINOPHIL COUNT 0.3 K/uL (0-0.3); IMMATURE GRANULOCYTE (%) 0.4 % (0.0-0.7); INSTRUMENT ABS NEUTROPHIL CT 2.2 K/uL; LYMPHOCYTE COUNT 1.7 K/uL (1.0-2.8); MCH 34.5 PG (29.0-34.0); MCHC 31.4 G/DL (30.0-36.0); MCV 109.7 FL (86-99); MEAN PLAT.VOLUME 10.4 uM^3 (9.0-12.4); MONOCYTE (%) 14.7 % (3-12); MONOCYTE COUNT 0.7 K/uL (0-0.8); NEUTROPHIL COUNT 2.2 K/uL (1.8-6.4); PLATELET COUNT 212 K/uL (156-360); RBC DIS.WIDTH-CV 14.3 % (11.8-14.6); WHITE BLOOD COUNT 4.9 K/uL (4.1-10.2)
[2016-10-29 07:16] LABS: RED BLOOD COUNT 3.19 M/uL (4.00-5.50)
[2016-10-29 07:53] LABS: ANION GAP 5 MEQ/L (2-14); CHLORIDE 105 MEQ/L (99-109); GFR ESTIMATE (CALCULATED) > 59 mL/min/; GLUCOSE 127 mg/dL (70-99); POTASSIUM 4.1 MEQ/L (3.7-5.4); SAMPLE HEMOLYSIS CHECK 0; SAMPLE ICTERIC CHECK 0; SAMPLE LIPEMIA CHECK 0; SODIUM 143 MEQ/L (136-147); UREA NITROGEN (BUN) 9 mg/dL (9-23)
[2016-10-29 08:10] VITALS: BP 120/70
== END 2016-10-29 16:55 | disposition home or self-care (01) | DRG 207 ==
LOC: EME → EDBD 23:03 → EME 23:03 → ENRESERV 10-21 02:29 → EDOF 10-21 02:29 → 4WEST 10-21 02:29 → ENRESERV 10-21 02:34 → 4WEST 10-21 04:04 → ENRESERV 10-26 13:52 → 5EAST 10-26 17:04
PROVIDERS: Emergency Medicine; Family Medicine Sports Medicine; Internal Medicine Critical Care Medicine; Internal Medicine Pulmonary Disease
DX: J69.0 Pneumonitis due to inhalation of food and vomit (principal); J96.01 Acute respiratory failure with hypoxia; Y95 Nosocomial condition; E22.2 Syndrome of inappropriate secretion of antidiuretic hormone; E87.4 Mixed disorder of acid-base balance; E72.20 Disorder of urea cycle metabolism, unspecified; F72 Severe intellectual disabilities; K55.1 Chronic vascular disorders of intestine; G80.8 Other cerebral palsy; R41.82 Altered mental status, unspecified; I10 Essential (primary) hypertension; G40.909 Epilepsy, unspecified, not intractable, without status epilepticus; E03.9 Hypothyroidism, unspecified; D64.9 Anemia, unspecified; K21.9 Gastro-esophageal reflux disease without esophagitis; K63.89 Other specified diseases of intestine; K59.09 Other constipation; Z93.1 Gastrostomy status; J45.909 Unspecified asthma, uncomplicated; Z86.011 Personal history of benign neoplasm of the brain; Z87.442 Personal history of urinary calculi
CPT/HCPCS: 36415; 36600; 70450; 71010; 71275; 74177; 80048; 80048 91; 80053; 80076; 80185; 80202; 81003; 82140; 82550; 82550 91; 82607; 82746; 82803; 83605; 83690; 83735; 83880; 84100; 84443; 84478; 84484; 85025; 85027; 87040; 87070; 87086; 87205; 87641; 87801; 93005; 94002; 94003; 94799; 99281; 99285; C9113; J1630; J1650; J1956; J2250; J2543; J2704; J3010; J3370; J3480; J7050

== ENCOUNTER 2016-11-02 14:10 | Emergency (ER) | payer OTHER ==
[~2016-11-02] VITALS: Ht 182.9 cm; Wt 94.0 kg
[~2016-11-02 14:10] MED LIST changes: +ENULOSE10 GM/15 M GT; +SODIUM CHLORIDE1 G1 PO
[2016-11-02 15:28] LABS: EOSINOPHIL (%) 6.4 % (0-5); EOSINOPHIL COUNT 0.4 K/uL (0-0.3); IMMATURE GRANULOCYTE (%) 0.5 % (0.0-0.7); INSTRUMENT ABS NEUTROPHIL CT 1.9 K/uL; LYMPHOCYTE COUNT 2.9 K/uL (1.0-2.8); MCH 33.6 PG (29.0-34.0); MCHC 30.6 G/DL (30.0-36.0); MCV 110.1 FL (86-99); MEAN PLAT.VOLUME 10.7 uM^3 (9.0-12.4); MONOCYTE (%) 12.9 % (3-12); MONOCYTE COUNT 0.8 K/uL (0-0.8); NEUTROPHIL (%) 31.7 % (45-76); NEUTROPHIL COUNT 1.9 K/uL (1.8-6.4); NRBC (%) 0.7 /100 WBC (0-0); PLATELET COUNT 202 K/uL (156-360); RBC DIS.WIDTH-SD 57.3 % (39-53); RED BLOOD COUNT 3.18 M/uL (4.00-5.50)
[2016-11-02 15:39] LABS: CHLORIDE 105 mEq/L (99-109); POTASSIUM 4.4 mEq/L (3.7-5.4); SODIUM 142 mEq/L (136-147)
[2016-11-02 15:40] LABS: GLUCOSE 95 mg/dL (70-99)
[2016-11-02 15:42] LABS: ANION GAP 7 MEQ/L (2-14)
[2016-11-02 15:44] LABS: GFR ESTIMATE (CALCULATED) > 59 mL/min/
[2016-11-02 15:45] LABS: UREA NITROGEN (BUN) 11 mg/dL (9-23)
[2016-11-02 16:41] LABS: ADD MIUA? YES; BILIRUBIN NEGATIVE; BLOOD NEGATIVE; COLOR YELLOW ((YELLOW)); GLUCOSE (STRIP) NEGATIVE; KETONES NEGATIVE; LEUKOCYTES TRACE; NITRITE NEGATIVE; PROTEIN (STRIP) NEGATIVE; UROBILINOGEN 0.2 MG/DL (0.2-1.0)
[2016-11-02 17:03] LABS: BACTERIA NONE SEEN /HPF; EPITHELIAL CELLS NONE SEEN /HPF; MUCUS TRACE /LPF; RED BLOOD CELLS 0-5 /HPF (0-5); WHITE BLOOD CELLS 0-5 /HPF (0-5)
[2016-11-02 19:00] VITALS: BP 103/71
== END 2016-11-02 19:24 | disposition home or self-care (01) ==
LOC: EME 14:10
PROVIDERS: Emergency Medicine
DX: R06.02 Shortness of breath (principal); K21.9 Gastro-esophageal reflux disease without esophagitis; R56.9 Unspecified convulsions; D64.9 Anemia, unspecified; G80.9 Cerebral palsy, unspecified; Z87.440 Personal history of urinary (tract) infections; Z87.01 Personal history of pneumonia (recurrent)
CPT/HCPCS: 71010; 80048; 81003; 85025; 93005; 99281; 99283

== ENCOUNTER 2016-11-14 08:30 | Inpatient (IN) | payer OTHER ==
[2016-11-14] VITALS (7 sets, daily range): BP systolic 99–121; BP diastolic 68–86
[~2016-11-14] VITALS: Ht 182.9 cm; Wt 82.3 kg
[2016-11-14 09:28] LABS: CARBON DIOXIDE (BICARBONATE) 32.2 MEQ/L (20-31)
[2016-11-14 09:41] LABS: MCH 33.8 PG (29.0-34.0); MCHC 32.1 G/DL (30.0-36.0); NRBC (%) 0.2 /100 WBC (0-0); PLATELET COUNT 188 K/uL (156-360); RBC DIS.WIDTH-CV 13.3 % (11.8-14.6); RBC DIS.WIDTH-SD 51.4 % (39-53); WHITE BLOOD COUNT 12.3 K/uL (4.1-10.2)
[2016-11-14 09:44] LABS: CHLORIDE 100 mEq/L (99-109); POTASSIUM 5.9 mEq/L (3.7-5.4); SODIUM 136 mEq/L (136-147)
[2016-11-14 09:46] LABS: GLUCOSE 182 mg/dL (70-99)
[2016-11-14 09:49] LABS: ANION GAP 15 MEQ/L (2-14)
[2016-11-14 09:50] LABS: GFR ESTIMATE (CALCULATED) > 59 mL/min/; UREA NITROGEN (BUN) 19 mg/dL (9-23)
[2016-11-14 09:55] LABS: TROP-I INTERPRETATION NEGATIVE; TROPONIN-I 0.02 ng/mL (0.0-0.30)
[2016-11-14 09:58] LABS: MEAN PLAT.VOLUME 12.7 uM^3 (9.0-12.4)
[2016-11-14 10:22] LABS: PLAT.SUFFICIENCY ADEQUATE
[2016-11-14 11:45] LABS: ADD MIUA? YES; BILIRUBIN NEGATIVE; BLOOD NEGATIVE; COLOR YELLOW ((YELLOW)); GLUCOSE (STRIP) NEGATIVE; KETONES NEGATIVE; LEUKOCYTES SMALL; NITRITE POSITIVE; PROTEIN (STRIP) >=500; SPECIFIC GRAVITY 1.013 (1.000-1.030); UROBILINOGEN 0.2 MG/DL (0.2-1.0)
[2016-11-14 11:53] LABS: BACTERIA 1+ /HPF; EPITHELIAL CELLS NONE SEEN /HPF; MUCUS TRACE /LPF; RED BLOOD CELLS 0-5 /HPF (0-5); UCUL ADDED? NO; URIC ACID CRYSTALS 3+ /HPF; WHITE BLOOD CELLS 0-5 /HPF (0-5)
[2016-11-14 12:34] LABS: BASE EXCESS 0.5 mEq/L (-3 to +3); BICARBONATE 30.5 mEq/L (22-26); CARBOXY HGB 2.6 % (0-5); COMMENTS - BLOOD GASES A+C+; DEVICE HHFNC; FI02 60 %; METHEMOGLOBIN 1.1 % (0-1.5); O2 FLOW 35 L/MIN; PCO2 78 mm Hg (35-45); PO2 174 mm Hg (80-100); SITE RR; TOTAL RESP RATE 27 resp/min
[2016-11-14] MEDS ORDERED: TRAMADOL HCL50 MG PO (13:35)
[2016-11-14] MEDS ORDERED: ENULOSE10 GM/15 M PO (13:38)
[2016-11-14 13:59] LABS: BASE EXCESS 0.6 mEq/L (-3 to +3); BICARBONATE 30.6 mEq/L (22-26); PCO2 84 mm Hg (35-45); PO2 193 mm Hg (80-100); pH 7.17 (7.35-7.45)
[2016-11-14 14:00] LABS: COMMENTS - BLOOD GASES A+C+; DEVICE HHFNC; FI02 60 %; O2 FLOW 45 L/MIN; SITE RR; TOTAL RESP RATE 20 resp/min
[2016-11-14 17:09] LABS: BASE EXCESS -2.1 mEq/L (-3 to +3); CARBOXY HGB 1.3 % (0-5); METHEMOGLOBIN 1.8 % (0-1.5)
[2016-11-14 17:10] LABS: BICARBONATE 23.2 mEq/L (22-26); COMMENTS - BLOOD GASES +C; DEVICE PB980; FI02 60 %; MECHANICAL RATE 20 resp/min; MODE AC; PCO2 41 mm Hg (35-45); PO2 148 mm Hg (80-100); SITE RR+A; TOTAL RESP RATE 20 resp/min; pH 7.36 (7.35-7.45)
[2016-11-14 17:11] LABS: PEEP 5 CM/H20; TIDAL VOLUME 450 ML
[2016-11-14 17:34] LABS: ANION GAP 7 MEQ/L (2-14); CHLORIDE 112 MEQ/L (99-109); GFR ESTIMATE (CALCULATED) > 59 mL/min/; GLUCOSE 126 mg/dL (70-99); MAGNESIUM 1.9 mg/dl (1.3-2.7); POTASSIUM 4.5 MEQ/L (3.7-5.4); SAMPLE HEMOLYSIS CHECK 0; SAMPLE ICTERIC CHECK 0; SAMPLE LIPEMIA CHECK 0; SODIUM 140 MEQ/L (136-147); UREA NITROGEN (BUN) 15 mg/dL (9-23)
[2016-11-14 18:05] LABS: METH RESISTANT S AUREUS PCR POSITIVE (NEGATIVE); PROBE CHECK PASS
[2016-11-15] VITALS (24 sets, daily range): BP systolic 91–144; BP diastolic 53–90
[2016-11-15 06:34] LABS: EOSINOPHIL (%) 1.1 % (0-5); EOSINOPHIL COUNT 0.1 K/uL (0-0.3); HEMATOCRIT 30.1 % (38.0-50.0); IMMATURE GRANULOCYTE (%) 0.3 % (0.0-0.7); INSTRUMENT ABS NEUTROPHIL CT 8.2 K/uL; LYMPHOCYTE COUNT 1.1 K/uL (1.0-2.8); MCH 35.2 PG (29.0-34.0); MCHC 32.9 G/DL (30.0-36.0); MCV 107.1 FL (86-99); MONOCYTE (%) 12.2 % (3-12); MONOCYTE COUNT 1.3 K/uL (0-0.8); NEUTROPHIL COUNT 8.2 K/uL (1.8-6.4); RBC DIS.WIDTH-CV 13.5 % (11.8-14.6); RBC DIS.WIDTH-SD 53.8 % (39-53); WHITE BLOOD COUNT 10.8 K/uL (4.1-10.2)
[2016-11-15 06:35] LABS: RED BLOOD COUNT 2.81 M/uL (4.00-5.50)
[2016-11-15 06:54] LABS: MEAN PLAT.VOLUME 11.5 uM^3 (9.0-12.4); PLAT.SUFFICIENCY DECREASED
[2016-11-15 07:01] LABS: PLATELET COUNT 128 K/uL (156-360)
[2016-11-15 07:08] LABS: ALKALINE PHOSPHATASE 83 IU/L (3-129); ANION GAP 5 MEQ/L (2-14); CHLORIDE 118 MEQ/L (99-109); GFR ESTIMATE (CALCULATED) > 59 mL/min/; GLUCOSE 114 mg/dL (70-99); POTASSIUM 3.9 MEQ/L (3.7-5.4); SAMPLE HEMOLYSIS CHECK 0; SAMPLE ICTERIC CHECK 0; SAMPLE LIPEMIA CHECK 0; SODIUM 145 MEQ/L (136-147); TOTAL BILIRUBIN 0.5 MG/DL (0.0-1.0); UREA NITROGEN (BUN) 12 mg/dL (9-23)
[2016-11-15 15:14] LABS: BASE EXCESS -3.2 mEq/L (-3 to +3); CARBOXY HGB 1.9 % (0-5); METHEMOGLOBIN 1.4 % (0-1.5); PCO2 61 mm Hg (35-45); PO2 74 mm Hg (80-100)
[2016-11-15 15:15] LABS: COMMENTS - BLOOD GASES +C; DEVICE PB980; FI02 30 %; MODE TUBE COMP.; PEEP 5 CM/H20; SITE RR +A; TOTAL RESP RATE 29 resp/min; pH 7.22 (7.35-7.45)
[2016-11-16] VITALS (24 sets, daily range): BP systolic 104–152; BP diastolic 65–90
[2016-11-16 08:49] LABS: EOSINOPHIL (%) 4.2 % (0-5); EOSINOPHIL COUNT 0.4 K/uL (0-0.3); HEMATOCRIT 30.6 % (38.0-50.0); IMMATURE GRANULOCYTE (%) 0.4 % (0.0-0.7); INSTRUMENT ABS NEUTROPHIL CT 6.2 K/uL; MCH 33.8 PG (29.0-34.0); MCV 108.9 FL (86-99); MONOCYTE (%) 11.2 % (3-12); NEUTROPHIL (%) 72.3 % (45-76); NEUTROPHIL COUNT 6.2 K/uL (1.8-6.4); RBC DIS.WIDTH-SD 56.3 % (39-53); RED BLOOD COUNT 2.81 M/uL (4.00-5.50); WHITE BLOOD COUNT 8.6 K/uL (4.1-10.2)
[2016-11-16 09:16] LABS: MEAN PLAT.VOLUME 12.9 uM^3 (9.0-12.4); PLAT.SUFFICIENCY ADEQUATE; PLATELET COUNT 150 K/uL (156-360)
[2016-11-16 09:20] LABS: ANION GAP 10 MEQ/L (2-14); CHLORIDE 120 MEQ/L (99-109); GFR ESTIMATE (CALCULATED) > 59 mL/min/; GLUCOSE 84 mg/dL (70-99); MAGNESIUM 2.1 mg/dl (1.3-2.7); SODIUM 147 MEQ/L (136-147); UREA NITROGEN (BUN) 10 mg/dL (9-23)
[2016-11-16 12:10] LABS: BASE EXCESS -4.4 mEq/L (-3 to +3); BICARBONATE 23.7 mEq/L (22-26); CARBOXY HGB 1.7 % (0-5); METHEMOGLOBIN 1.1 % (0-1.5); PCO2 58 mm Hg (35-45)
[2016-11-16 12:11] LABS: COMMENTS - BLOOD GASES +C; DEVICE PB980; PO2 105 mm Hg (80-100); SITE LR; pH 7.22 (7.35-7.45)
[2016-11-16 12:12] LABS: CONTINUOUS POS AIRWAY PRESSURE 5 cm H2O; FI02 30 %; MODE TUBE COMP.; TOTAL RESP RATE 37 resp/min
[2016-11-17] VITALS (24 sets, daily range): BP systolic 122–166; BP diastolic 68–106
[2016-11-17 05:55] LABS: EOSINOPHIL (%) 3.7 % (0-5); EOSINOPHIL COUNT 0.3 K/uL (0-0.3); HEMATOCRIT 31.4 % (38.0-50.0); IMMATURE GRANULOCYTE (%) 0.4 % (0.0-0.7); INSTRUMENT ABS NEUTROPHIL CT 5.1 K/uL; LYMPHOCYTE COUNT 1.5 K/uL (1.0-2.8); MCH 33.2 PG (29.0-34.0); MCHC 30.9 G/DL (30.0-36.0); MCV 107.5 FL (86-99); MONOCYTE (%) 13.6 % (3-12); MONOCYTE COUNT 1.1 K/uL (0-0.8); NEUTROPHIL (%) 63.5 % (45-76); NEUTROPHIL COUNT 5.1 K/uL (1.8-6.4); PLATELET COUNT 139 K/uL (156-360); RBC DIS.WIDTH-SD 54.8 % (39-53); RED BLOOD COUNT 2.92 M/uL (4.00-5.50); WHITE BLOOD COUNT 7.9 K/uL (4.1-10.2)
[2016-11-17 06:44] LABS: ANION GAP 4 MEQ/L (2-14); CHLORIDE 119 MEQ/L (99-109); GFR ESTIMATE (CALCULATED) > 59 mL/min/; GLUCOSE 88 mg/dL (70-99); POTASSIUM 3.3 MEQ/L (3.7-5.4); SAMPLE HEMOLYSIS CHECK 0; SAMPLE ICTERIC CHECK 0; SAMPLE LIPEMIA CHECK 0; SODIUM 147 MEQ/L (136-147); UREA NITROGEN (BUN) 12 mg/dL (9-23)
[2016-11-18] VITALS (24 sets, daily range): BP systolic 119–174; BP diastolic 67–99
[2016-11-18 05:37] LABS: EOSINOPHIL (%) 4.8 % (0-5); EOSINOPHIL COUNT 0.4 K/uL (0-0.3); IMMATURE GRANULOCYTE (%) 0.3 % (0.0-0.7); INSTRUMENT ABS NEUTROPHIL CT 4.5 K/uL; LYMPHOCYTE COUNT 1.6 K/uL (1.0-2.8); MCH 34.6 PG (29.0-34.0); MCHC 32.3 G/DL (30.0-36.0); MCV 107.1 FL (86-99); MONOCYTE (%) 13.7 % (3-12); NEUTROPHIL (%) 60.1 % (45-76); NEUTROPHIL COUNT 4.5 K/uL (1.8-6.4); PLATELET COUNT 140 K/uL (156-360); RBC DIS.WIDTH-SD 55.1 % (39-53); WHITE BLOOD COUNT 7.5 K/uL (4.1-10.2)
[2016-11-18 05:41] LABS: BASE EXCESS 1.2 mEq/L (-3 to +3); BICARBONATE 24.9 mEq/L (22-26); CARBOXY HGB 1.7 % (0-5); METHEMOGLOBIN 1.8 % (0-1.5); PCO2 35 mm Hg (35-45); PO2 107 mm Hg (80-100); pH 7.46 (7.35-7.45)
[2016-11-18 05:42] LABS: COMMENTS - BLOOD GASES C+; DEVICE VENT; FI02 35 %; INSPIRATION TIME 0.8 seconds; MECHANICAL RATE 20 resp/min; MODE AC+; PEEP 5 CM/H20; SITE RR; TIDAL VOLUME 450 ML; TOTAL RESP RATE 20 resp/min
[2016-11-18 06:46] LABS: ANION GAP 8 MEQ/L (2-14); CHLORIDE 118 MEQ/L (99-109); GFR ESTIMATE (CALCULATED) > 59 mL/min/; GLUCOSE 95 mg/dL (70-99); MAGNESIUM 1.9 mg/dl (1.3-2.7); POTASSIUM 3.3 MEQ/L (3.7-5.4); SAMPLE HEMOLYSIS CHECK 0; SAMPLE ICTERIC CHECK 0; SAMPLE LIPEMIA CHECK 0; SODIUM 148 MEQ/L (136-147); UREA NITROGEN (BUN) 13 mg/dL (9-23)
[2016-11-19] VITALS (24 sets, daily range): BP systolic 115–173; BP diastolic 64–98
[2016-11-19 05:42] LABS: EOSINOPHIL (%) 5.9 % (0-5); EOSINOPHIL COUNT 0.4 K/uL (0-0.3); HEMATOCRIT 31.8 % (38.0-50.0); IMMATURE GRANULOCYTE (%) 0.6 % (0.0-0.7); INSTRUMENT ABS NEUTROPHIL CT 3.6 K/uL; MCH 34.4 PG (29.0-34.0); MCHC 32.4 G/DL (30.0-36.0); MCV 106.4 FL (86-99); MEAN PLAT.VOLUME 11.6 uM^3 (9.0-12.4); MONOCYTE (%) 13.8 % (3-12); NEUTROPHIL (%) 51.2 % (45-76); NEUTROPHIL COUNT 3.6 K/uL (1.8-6.4); NRBC (%) 0.3 /100 WBC (0-0); PLATELET COUNT 149 K/uL (156-360); RBC DIS.WIDTH-CV 14.1 % (11.8-14.6); RBC DIS.WIDTH-SD 55.6 % (39-53); RED BLOOD COUNT 2.99 M/uL (4.00-5.50)
[2016-11-19 06:14] LABS: ANION GAP 7 MEQ/L (2-14); CHLORIDE 118 MEQ/L (99-109); GFR ESTIMATE (CALCULATED) > 59 mL/min/; GLUCOSE 117 mg/dL (70-99); POTASSIUM 3.5 MEQ/L (3.7-5.4); SAMPLE HEMOLYSIS CHECK 0; SAMPLE ICTERIC CHECK 0; SAMPLE LIPEMIA CHECK 0; SODIUM 150 MEQ/L (136-147); UREA NITROGEN (BUN) 13 mg/dL (9-23)
[2016-11-20] VITALS (23 sets, daily range): BP systolic 105–165; BP diastolic 61–99
[2016-11-20 05:12] LABS: EOSINOPHIL COUNT 0.4 K/uL (0-0.3); HEMATOCRIT 29.6 % (38.0-50.0); IMMATURE GRANULOCYTE (%) 0.8 % (0.0-0.7); IMMATURE GRANULOCYTE COUNT 0.1 K/uL; INSTRUMENT ABS NEUTROPHIL CT 2.8 K/uL; LYMPHOCYTE COUNT 2.8 K/uL (1.0-2.8); MCH 33.8 PG (29.0-34.0); MCHC 31.8 G/DL (30.0-36.0); MCV 106.5 FL (86-99); MEAN PLAT.VOLUME 12.1 uM^3 (9.0-12.4); MONOCYTE COUNT 1.1 K/uL (0-0.8); NEUTROPHIL (%) 39.4 % (45-76); NEUTROPHIL COUNT 2.8 K/uL (1.8-6.4); NRBC (%) 0.3 /100 WBC (0-0); PLATELET COUNT 148 K/uL (156-360); RBC DIS.WIDTH-CV 14.1 % (11.8-14.6); RBC DIS.WIDTH-SD 55.8 % (39-53); RED BLOOD COUNT 2.78 M/uL (4.00-5.50); WHITE BLOOD COUNT 7.2 K/uL (4.1-10.2)
[2016-11-20 05:44] LABS: ANION GAP 6 MEQ/L (2-14); CHLORIDE 119 MEQ/L (99-109); GFR ESTIMATE (CALCULATED) > 59 mL/min/; MAGNESIUM 1.9 mg/dl (1.3-2.7); POTASSIUM 4.1 MEQ/L (3.7-5.4); SAMPLE HEMOLYSIS CHECK 0; SAMPLE ICTERIC CHECK 0; SAMPLE LIPEMIA CHECK 0; SODIUM 150 MEQ/L (136-147); UREA NITROGEN (BUN) 15 mg/dL (9-23)
[2016-11-20 05:45] LABS: GLUCOSE 67 mg/dL (70-99)
[2016-11-21] VITALS (23 sets, daily range): BP systolic 0–188; BP diastolic 0–116
[2016-11-21 05:30] LABS: EOSINOPHIL (%) 8.9 % (0-5); EOSINOPHIL COUNT 0.6 K/uL (0-0.3); HEMATOCRIT 31.6 % (38.0-50.0); IMMATURE GRANULOCYTE (%) 1.9 % (0.0-0.7); IMMATURE GRANULOCYTE COUNT 0.1 K/uL; INSTRUMENT ABS NEUTROPHIL CT 2.3 K/uL; LYMPHOCYTE COUNT 2.8 K/uL (1.0-2.8); MCHC 31.6 G/DL (30.0-36.0); MCV 104.3 FL (86-99); MEAN PLAT.VOLUME 11.2 uM^3 (9.0-12.4); MONOCYTE (%) 15.1 % (3-12); MONOCYTE COUNT 1.1 K/uL (0-0.8); NEUTROPHIL (%) 33.7 % (45-76); NEUTROPHIL COUNT 2.3 K/uL (1.8-6.4); PLATELET COUNT 142 K/uL (156-360); RBC DIS.WIDTH-CV 13.8 % (11.8-14.6); RBC DIS.WIDTH-SD 53.1 % (39-53); RED BLOOD COUNT 3.03 M/uL (4.00-5.50); WHITE BLOOD COUNT 6.9 K/uL (4.1-10.2)
[2016-11-21 09:41] LABS: ANION GAP 9 MEQ/L (2-14); CHLORIDE 109 MEQ/L (99-109); GFR ESTIMATE (CALCULATED) > 59 mL/min/; GLUCOSE 98 mg/dL (70-99); MAGNESIUM 1.8 mg/dl (1.3-2.7); POTASSIUM 3.3 MEQ/L (3.7-5.4); SAMPLE HEMOLYSIS CHECK 0; SAMPLE ICTERIC CHECK 0; SAMPLE LIPEMIA CHECK 0; SODIUM 142 MEQ/L (136-147); UREA NITROGEN (BUN) 16 mg/dL (9-23)
[2016-11-22] VITALS (24 sets, daily range): BP systolic 112–176; BP diastolic 71–104
[2016-11-22 07:19] LABS: HEMATOCRIT 29.2 % (38.0-50.0); MCH 34.8 PG (29.0-34.0); MCHC 33.2 G/DL (30.0-36.0); MCV 104.7 FL (86-99); MEAN PLAT.VOLUME 11.5 uM^3 (9.0-12.4); PLATELET COUNT 135 K/uL (156-360); RBC DIS.WIDTH-CV 13.8 % (11.8-14.6); RBC DIS.WIDTH-SD 53.1 % (39-53); RED BLOOD COUNT 2.79 M/uL (4.00-5.50); WHITE BLOOD COUNT 7.4 K/uL (4.1-10.2)
[2016-11-22 08:30] LABS: ANION GAP 5 MEQ/L (2-14); CHLORIDE 109 MEQ/L (99-109); GFR ESTIMATE (CALCULATED) > 59 mL/min/; GLUCOSE 101 mg/dL (70-99); POTASSIUM 4.4 MEQ/L (3.7-5.4); SAMPLE HEMOLYSIS CHECK 0; SAMPLE ICTERIC CHECK 0; SAMPLE LIPEMIA CHECK 0; SODIUM 139 MEQ/L (136-147); UREA NITROGEN (BUN) 16 mg/dL (9-23)
[2016-11-23] VITALS (24 sets, daily range): BP systolic 98–155; BP diastolic 59–92
[2016-11-23 05:33] LABS: EOSINOPHIL (%) 8.8 % (0-5); EOSINOPHIL COUNT 0.5 K/uL (0-0.3); IMMATURE GRANULOCYTE (%) 1.8 % (0.0-0.7); IMMATURE GRANULOCYTE COUNT 0.1 K/uL; INSTRUMENT ABS NEUTROPHIL CT 2.4 K/uL; LYMPHOCYTE COUNT 2.4 K/uL (1.0-2.8); MCH 33.3 PG (29.0-34.0); MCHC 32.4 G/DL (30.0-36.0); MCV 102.8 FL (86-99); MONOCYTE (%) 9.5 % (3-12); MONOCYTE COUNT 0.6 K/uL (0-0.8); NEUTROPHIL (%) 39.2 % (45-76); NEUTROPHIL COUNT 2.4 K/uL (1.8-6.4); RBC DIS.WIDTH-CV 13.4 % (11.8-14.6); RBC DIS.WIDTH-SD 51.1 % (39-53); RED BLOOD COUNT 2.82 M/uL (4.00-5.50)
[2016-11-23 06:22] LABS: HEMATOLOGY COMMENT 1 SN; MEAN PLAT.VOLUME 12.1 uM^3 (9.0-12.4); PLAT.SUFFICIENCY ADEQUATE; PLATELET COUNT 156 K/uL (156-360)
[2016-11-23 06:29] LABS: ANION GAP 7 MEQ/L (2-14); CHLORIDE 107 MEQ/L (99-109); GFR ESTIMATE (CALCULATED) > 59 mL/min/; GLUCOSE 88 mg/dL (70-99); MAGNESIUM 1.7 mg/dl (1.3-2.7); POTASSIUM 4.2 MEQ/L (3.7-5.4); SAMPLE HEMOLYSIS CHECK 0; SAMPLE ICTERIC CHECK 0; SAMPLE LIPEMIA CHECK 0; SODIUM 134 MEQ/L (136-147); UREA NITROGEN (BUN) 14 mg/dL (9-23)
[2016-11-23 07:23] LABS: PTT 20.9 SEC (25-37)
[2016-11-23 07:27] LABS: INTER. NORMALIZED RATIO 1.2; PROTHROMBIN TIME 12.7 SEC (10.2-12.9)
[2016-11-23 17:07] LABS: ANION GAP 5 MEQ/L (2-14); CHLORIDE 104 MEQ/L (99-109); GFR ESTIMATE (CALCULATED) > 59 mL/min/; GLUCOSE 96 mg/dL (70-99); POTASSIUM 4.1 MEQ/L (3.7-5.4); SAMPLE HEMOLYSIS CHECK 0; SAMPLE ICTERIC CHECK 0; SAMPLE LIPEMIA CHECK 0; SODIUM 132 MEQ/L (136-147); UREA NITROGEN (BUN) 12 mg/dL (9-23)
[2016-11-24] VITALS (30 sets, daily range): BP systolic 67–181; BP diastolic 42–95
[2016-11-24 05:24] LABS: EOSINOPHIL (%) 10.1 % (0-5); EOSINOPHIL COUNT 0.5 K/uL (0-0.3); HEMATOCRIT 26.5 % (38.0-50.0); IMMATURE GRANULOCYTE (%) 1.3 % (0.0-0.7); IMMATURE GRANULOCYTE COUNT 0.1 K/uL; INSTRUMENT ABS NEUTROPHIL CT 1.7 K/uL; LYMPHOCYTE COUNT 1.8 K/uL (1.0-2.8); MCH 34.5 PG (29.0-34.0); MCHC 32.8 G/DL (30.0-36.0); MCV 105.2 FL (86-99); MEAN PLAT.VOLUME 11.3 uM^3 (9.0-12.4); MONOCYTE (%) 10.5 % (3-12); MONOCYTE COUNT 0.5 K/uL (0-0.8); NEUTROPHIL COUNT 1.7 K/uL (1.8-6.4); PLATELET COUNT 126 K/uL (156-360); RBC DIS.WIDTH-CV 13.5 % (11.8-14.6); RED BLOOD COUNT 2.52 M/uL (4.00-5.50); WHITE BLOOD COUNT 4.5 K/uL (4.1-10.2)
[2016-11-24 05:57] LABS: MAGNESIUM 1.8 mg/dl (1.3-2.7)
[2016-11-25] VITALS (24 sets, daily range): BP systolic 89–140; BP diastolic 51–90
[2016-11-26] VITALS (24 sets, daily range): BP systolic 98–153; BP diastolic 55–96
[2016-11-26 08:53] LABS: HEMATOCRIT 29.1 % (38.0-50.0); MCH 33.2 PG (29.0-34.0); MCHC 31.3 G/DL (30.0-36.0); MCV 106.2 FL (86-99); MEAN PLAT.VOLUME 11.2 uM^3 (9.0-12.4); PLATELET COUNT 130 K/uL (156-360); RBC DIS.WIDTH-CV 13.6 % (11.8-14.6); RBC DIS.WIDTH-SD 51.9 % (39-53); RED BLOOD COUNT 2.74 M/uL (4.00-5.50); WHITE BLOOD COUNT 8.8 K/uL (4.1-10.2)
[2016-11-26 09:11] LABS: ANION GAP 5 MEQ/L (2-14); CHLORIDE 103 MEQ/L (99-109); POTASSIUM 4.5 MEQ/L (3.7-5.4); SAMPLE HEMOLYSIS CHECK 0; SAMPLE ICTERIC CHECK 0; SAMPLE LIPEMIA CHECK 0; SODIUM 136 MEQ/L (136-147)
[2016-11-26 09:18] LABS: GFR ESTIMATE (CALCULATED) > 59 mL/min/; GLUCOSE 125 mg/dL (70-99); UREA NITROGEN (BUN) 11 mg/dL (9-23)
[2016-11-27] VITALS (23 sets, daily range): BP systolic 93–148; BP diastolic 62–89
[2016-11-27 10:13] LABS: HEMATOCRIT 28.5 % (38.0-50.0); MCH 33.3 PG (29.0-34.0); MCHC 31.9 G/DL (30.0-36.0); MCV 104.4 FL (86-99); MEAN PLAT.VOLUME 11.1 uM^3 (9.0-12.4); PLATELET COUNT 129 K/uL (156-360); RBC DIS.WIDTH-CV 13.3 % (11.8-14.6); RBC DIS.WIDTH-SD 50.6 % (39-53); RED BLOOD COUNT 2.73 M/uL (4.00-5.50); WHITE BLOOD COUNT 7.7 K/uL (4.1-10.2)
[2016-11-28] VITALS (24 sets, daily range): BP systolic 84–147; BP diastolic 51–83
[2016-11-28 08:58] LABS: EOSINOPHIL COUNT 0.2 K/uL (0-0.3); HEMATOCRIT 27.6 % (38.0-50.0); IMMATURE GRANULOCYTE (%) 0.8 % (0.0-0.7); IMMATURE GRANULOCYTE COUNT 0.1 K/uL; INSTRUMENT ABS NEUTROPHIL CT 6.9 K/uL; LYMPHOCYTE COUNT 1.5 K/uL (1.0-2.8); MCHC 32.6 G/DL (30.0-36.0); MCV 104.2 FL (86-99); MEAN PLAT.VOLUME 11.7 uM^3 (9.0-12.4); MONOCYTE (%) 8.8 % (3-12); MONOCYTE COUNT 0.8 K/uL (0-0.8); NEUTROPHIL (%) 72.5 % (45-76); NEUTROPHIL COUNT 6.9 K/uL (1.8-6.4); PLATELET COUNT 137 K/uL (156-360); RBC DIS.WIDTH-CV 13.5 % (11.8-14.6); RED BLOOD COUNT 2.65 M/uL (4.00-5.50); WHITE BLOOD COUNT 9.6 K/uL (4.1-10.2)
[2016-11-28 09:34] LABS: ANION GAP 7 MEQ/L (2-14); CHLORIDE 99 MEQ/L (99-109); GFR ESTIMATE (CALCULATED) > 59 mL/min/; GLUCOSE 131 mg/dL (70-99); POTASSIUM 4.7 MEQ/L (3.7-5.4); SAMPLE HEMOLYSIS CHECK 0; SAMPLE ICTERIC CHECK 0; SAMPLE LIPEMIA CHECK 0; SODIUM 132 MEQ/L (136-147); UREA NITROGEN (BUN) 13 mg/dL (9-23)
[2016-11-29] VITALS (16 sets, daily range): BP systolic 88–140; BP diastolic 57–83
[2016-11-30] VITALS (7 sets, daily range): BP systolic 0–123; BP diastolic 0–77
[2016-11-30 04:54] LABS: CHLORIDE 99 mEq/L (99-109); POTASSIUM 4.1 mEq/L (3.7-5.4); SODIUM 131 mEq/L (136-147)
[2016-11-30 04:55] LABS: GLUCOSE 136 mg/dL (70-99)
[2016-11-30 04:57] LABS: ANION GAP 10 MEQ/L (2-14)
[2016-11-30 04:59] LABS: GFR ESTIMATE (CALCULATED) > 59 mL/min/
[2016-11-30 05:00] LABS: UREA NITROGEN (BUN) 12 mg/dL (9-23)
[2016-11-30 05:23] LABS: BASE EXCESS 3.9 mEq/L (-3 to +3); BICARBONATE 29.2 mEq/L (22-26); CARBOXY HGB 1.8 % (0-5); METHEMOGLOBIN 1.7 % (0-1.5); PO2 98 mm Hg (80-100); pH 7.41 (7.35-7.45)
[2016-11-30 05:24] LABS: COMMENTS - BLOOD GASES A+C+; DEVICE VENT; FI02 30 %; MECHANICAL RATE 10 resp/min; MODE SIMV; PCO2 46 mm Hg (35-45); PEEP 5 CM/H20; PRES. SUPPORT 12 CM/H2O; SITE RR; TIDAL VOLUME 500 ML; TOTAL RESP RATE 14 resp/min
[2016-12-01] VITALS: BP 94/59
[2016-12-01 04:00] VITALS: BP 90/59
[2016-12-01 08:00] VITALS: BP 0/0; BP 133/82
[2016-12-01 12:00] VITALS: BP 127/80
[2016-12-01 14:20] LABS: HEMATOCRIT 26.7 % (38.0-50.0); MCH 33.2 PG (29.0-34.0); MCHC 32.6 G/DL (30.0-36.0); MCV 101.9 FL (86-99); MEAN PLAT.VOLUME 10.5 uM^3 (9.0-12.4); RBC DIS.WIDTH-CV 13.2 % (11.8-14.6); RBC DIS.WIDTH-SD 49.3 % (39-53); RED BLOOD COUNT 2.62 M/uL (4.00-5.50); WHITE BLOOD COUNT 8.8 K/uL (4.1-10.2)
[2016-12-01 14:21] LABS: PLATELET COUNT 230 K/uL (156-360)
[2016-12-01 14:48] LABS: ALKALINE PHOSPHATASE 138 IU/L (3-129); ANION GAP 4 MEQ/L (2-14); CHLORIDE 97 MEQ/L (99-109); GFR ESTIMATE (CALCULATED) > 59 mL/min/; GLUCOSE 114 mg/dL (70-99); SAMPLE HEMOLYSIS CHECK 1; SAMPLE ICTERIC CHECK 0; SAMPLE LIPEMIA CHECK 0; SODIUM 128 MEQ/L (136-147); TOTAL BILIRUBIN 0.3 MG/DL (0.0-1.0); UREA NITROGEN (BUN) 12 mg/dL (9-23)
[2016-12-01 16:00] VITALS: BP 104/61
[2016-12-01 20:00] VITALS: BP 109/61
[2016-12-02] VITALS: BP 136/75
[2016-12-02 04:00] VITALS: BP 102/60
[2016-12-02 08:00] VITALS: BP 149/77
[2016-12-02 12:00] VITALS: BP 152/79
[2016-12-02 16:00] VITALS: BP 143/76
[2016-12-02 20:00] VITALS: BP 125/68
[2016-12-03] VITALS (9 sets, daily range): BP systolic 93–162; BP diastolic 53–86
[2016-12-04] VITALS (10 sets, daily range): BP systolic 125–165; BP diastolic 67–91
[2016-12-04 10:42] LABS: EOSINOPHIL (%) 1.2 % (0-5); EOSINOPHIL COUNT 0.2 K/uL (0-0.3); HEMATOCRIT 27.1 % (38.0-50.0); IMMATURE GRANULOCYTE (%) 0.5 % (0.0-0.7); IMMATURE GRANULOCYTE COUNT 0.1 K/uL; INSTRUMENT ABS NEUTROPHIL CT 9.4 K/uL; LYMPHOCYTE COUNT 1.2 K/uL (1.0-2.8); MCH 33.1 PG (29.0-34.0); MCHC 31.7 G/DL (30.0-36.0); MCV 104.2 FL (86-99); MEAN PLAT.VOLUME 9.9 uM^3 (9.0-12.4); MONOCYTE (%) 11.2 % (3-12); MONOCYTE COUNT 1.4 K/uL (0-0.8); NEUTROPHIL (%) 76.7 % (45-76); NEUTROPHIL COUNT 9.4 K/uL (1.8-6.4); PLATELET COUNT 266 K/uL (156-360); RBC DIS.WIDTH-CV 13.2 % (11.8-14.6); RBC DIS.WIDTH-SD 50.4 % (39-53); WHITE BLOOD COUNT 12.2 K/uL (4.1-10.2)
[2016-12-04 11:03] LABS: ANION GAP 7 MEQ/L (2-14); CHLORIDE 101 MEQ/L (99-109); POTASSIUM 4.1 MEQ/L (3.7-5.4); SAMPLE HEMOLYSIS CHECK 0; SAMPLE ICTERIC CHECK 0; SAMPLE LIPEMIA CHECK 0; SODIUM 131 MEQ/L (136-147)
[2016-12-04 11:10] LABS: GFR ESTIMATE (CALCULATED) > 59 mL/min/; GLUCOSE 155 mg/dL (70-99); UREA NITROGEN (BUN) 14 mg/dL (9-23)
[2016-12-05] VITALS (11 sets, daily range): BP systolic 111–162; BP diastolic 66–101
[2016-12-06] VITALS (7 sets, daily range): BP systolic 95–146; BP diastolic 57–89
[2016-12-06] MEDS ORDERED: VANCOMYCIN HCL1 GM IV (19:22)
[2016-12-06] MEDS ORDERED: DUONEB 2.5-0.5 M3 ML AEROSOL (19:23)
[2016-12-06] MEDS ORDERED: ENDOCET 5-3251 EACH GT (19:24)
[2016-12-06] MEDS ORDERED: HEPARIN SO5000 UNIT4 SC (19:24)
[2016-12-06] MEDS ORDERED: OYSTER SHELL 51 EACH GT (19:25)
[2016-12-06] MEDS ORDERED: ATROPINE 1100 DROP/5 PO (19:26)
[2016-12-06] MEDS ORDERED: CHLORHEXIDINE473 ML MM (19:26)
[2016-12-06] MEDS ORDERED: SCOPOLAMINE1 EACH TD (19:27)
[2016-12-06] MEDS ORDERED: PREDNISONE1 MG/ML GT (19:27)
[2016-12-07] VITALS: BP 98/53
[2016-12-07 04:00] VITALS: BP 116/68
[2016-12-07 08:00] VITALS: BP 106/60
[2016-12-07 11:00] VITALS: BP 135/77
== END 2016-12-07 11:45 | DRG 4 ==
LOC: EME 08:30 → 4WEST 14:21 → EDOF 14:21 → ENRESERV 14:23 → 4WEST 16:18
PROVIDERS: Emergency Medicine; Family Medicine Sports Medicine; Internal Medicine Critical Care Medicine; Internal Medicine Pulmonary Disease; Obstetrics & Gynecology; Physician Assistant; Specialist; Thoracic Surgery (Cardiothoracic Vascular Surgery)
PROC: 5A1955Z Respiratory Ventilation, Greater than 96 Consecutive Hours (ICD-10-PCS; 2016-11-14)
PROC: 0BH17EZ Insertion of Endotracheal Airway into Trachea, Via Natural or Artificial Opening (ICD-10-PCS; principal; 2016-11-27)
PROC: 0H94XZZ Drainage of Neck Skin, External Approach (ICD-10-PCS; principal; 2016-11-27)
PROC: 0B113F4 Bypass Trachea to Cutaneous with Tracheostomy Device, Percutaneous Approach (ICD-10-PCS; principal; 2016-11-27)
DX: A41.59 Other Gram-negative sepsis (principal); J15.1 Pneumonia due to Pseudomonas; J69.0 Pneumonitis due to inhalation of food and vomit; J96.22 Acute and chronic respiratory failure with hypercapnia; E22.2 Syndrome of inappropriate secretion of antidiuretic hormone; J96.21 Acute and chronic respiratory failure with hypoxia; R65.20 Severe sepsis without septic shock; E87.0 Hyperosmolality and hypernatremia; G82.50 Quadriplegia, unspecified; J95.860 Postprocedural hematoma of a respiratory system organ or structure following a respiratory system procedure; N39.0 Urinary tract infection, site not specified; K63.89 Other specified diseases of intestine; K21.9 Gastro-esophageal reflux disease without esophagitis; G40.909 Epilepsy, unspecified, not intractable, without status epilepticus; B95.62 Methicillin resistant Staphylococcus aureus infection as the cause of diseases classified elsewhere; G80.9 Cerebral palsy, unspecified; E03.9 Hypothyroidism, unspecified; G83.9 Paralytic syndrome, unspecified; B96.4 Proteus (mirabilis) (morganii) as the cause of diseases classified elsewhere; R13.10 Dysphagia, unspecified; I10 Essential (primary) hypertension; R41.0 Disorientation, unspecified; Z87.01 Personal history of pneumonia (recurrent); Z87.440 Personal history of urinary (tract) infections; Z93.1 Gastrostomy status; Z99.11 Dependence on respirator [ventilator] status; Z96.0 Presence of urogenital implants; Z88.6 Allergy status to analgesic agent; Z88.8 Allergy status to other drugs, medicaments and biological substances; D63.8 Anemia in other chronic diseases classified elsewhere; Z86.011 Personal history of benign neoplasm of the brain; J45.901 Unspecified asthma with (acute) exacerbation
CPT/HCPCS: 36600; 71010; 71020; 74000; 80048; 80048 91; 80053; 80185; 80202; 81003; 82040; 82140; 82330; 82607; 82746; 82803; 83605; 83735; 83880; 84100; 84484; 85025; 85027; 85610; 85730; 86850; 86900; 86901; 87040; 87070; 87077; 87086; 87147; 87186; 87205; 87641; 87801; 90686; 93005; 94002; 94003; 94640; 94640 76; 94760; 99202; 99281; 99285; C1753; J0360; J0692; J0696; J1644; J1940; J2543; J3010; J3370; J3475; J7030; J7040; J7050; J7512